=== PATIENT | female | born 1990 | race Caucasian/White ===

== ENCOUNTER 2017-06-06 04:07 | Emergency (ER) | payer MEDICAID ==
[~2017-06-06] VITALS: Ht 157.5 cm; Wt 57.2 kg
[~2017-06-06 04:07] MED LIST: COM10T PO; ESOM20CA PO; FAMO-128 PO; ONDA4TAB12 PO; ONDA4TAB6 PO; PER5325T PO; SUCR1ORA2 PO; ZOF4T PO
[2017-06-06] MEDS ORDERED: ondansetron/PF 4mg/2ml inj IV ONE (04:20)
[2017-06-06] MEDS ORDERED: HYDROmorphone inj. 0.5 MG/0.5 ML DISP.SYRIN IV ONE (04:20)
[2017-06-06] MEDS ORDERED: normal saline 1000ML IV soln IVB ONE (04:20)
[2017-06-06] MEDS ORDERED: acetaminophen 325mg tablet PO ONE (04:25)
[2017-06-06 04:48] LABS: BASOPHILS % (AUTO) 0.4 % (0-1); EOSINOPHILS # (AUTO) 0.1 X10'3 (0-0.9); EOSINOPHILS % (AUTO) 1.3 % (0-6); HEMATOCRIT 37.8 % (35.0-45.0); HEMOGLOBIN 12.6 g/dl (12.0-16.0); LYMPHOCYTES # (AUTO) 1.5 X10'3 (1.1-4.8); LYMPHOCYTES % (AUTO) 17.7 % (21-51); MEAN CORPUSCULAR HEMOGLOBIN 27.1 PG (27.0-31.0); MEAN CORPUSCULAR HGB CONC 33.4 % (33.0-36.5); MEAN PLATELET VOLUME 8.6 FL (7.4-10.4); MONOCYTES # (AUTO) 0.5 X10'3 (0-0.9); MONOCYTES % (AUTO) 6.5 % (2-12); NEUTROPHILS # (AUTO) 6.3 X10'3 (1.8-7.7); NEUTROPHILS % (AUTO) 74.1 % (42-75); PLATELET COUNT 251 X10'3 (140-440); RED BLOOD COUNT 4.67 X10'6 (4.20-5.60); WHITE BLOOD COUNT 8.4 X10'3 (4.5-11.0)
[2017-06-06 04:50] LABS: CLARITY,URINE CLOUDY (Clear); COLOR,URINE YELLOW (Yellow); GLUCOSE, URINE NEGATIVE (Neg); KETONES,URINE NEGATIVE (Neg); LEUKOCYTE ESTERASE ,URINE NEGATIVE (Neg); NITRITES, URINE NEGATIVE (Neg); OCCULT BLOOD,URINE LARGE (Neg); PROTEIN,URINE 100 mg/dl (Neg); URINE HCG NEGATIVE (NEG); UROBILINOGEN,URINE 0.2 E.U/dL (0.2-1.0)
[2017-06-06 05:03] LABS: ALANINE AMINOTRANSFERASE 23 U/L (12-78); ALBUMIN 4.4 G/DL (3.4-5.0); ALBUMIN/GLOBULIN RATIO 1.3 (1.1-1.5); ALKALINE PHOSPHATASE 70 IU/L (46-116); ANION GAP 9 (8-16); ASPARTATE AMINO TRANSFERASE 15 U/L (10-37); BILIRUBIN,TOTAL 0.4 MG/DL (0.1-1.0); BLOOD UREA NITROGEN 12 MG/DL (7-18); BUN/CREATININE RATIO 17.1 (6.6-38.0); CALCIUM 8.8 MG/DL (8.5-10.1); CHLORIDE 107 MMOL/L (99-107); GLUCOSE 99 MG/DL (70-104); POTASSIUM 3.8 MMOL/L (3.5-5.1); SODIUM 143 MMOL/L (135-145); TOTAL CARBON DIOXIDE 27.2 MMOL/L (24-32); TOTAL PROTEIN 7.7 G/DL (6.4-8.2); eGFR > 90 ML/MIN
[2017-06-06 05:15] LABS: UA COLLECTION TYPE CLN CATCH MIDSTREAM
[2017-06-06 05:17] LABS: BACTERIA,URINE 1+ /HPF (Neg); MUCUS STRANDS MODERATE /LPF (Neg); SQUAMOUS EPITHELIAL CELL,UR FEW /LPF (FEW)
[2017-06-06 05:18] LABS: AMORPHOUS PHOSPHATES 1+; TRANSITIONAL EPI CELLS,URINE FEW /HPF
[2017-06-06] MEDS ORDERED: ONDA8TAB9 PO (05:24)
[2017-06-06] MEDS ORDERED: HYDR-3965 PO (05:24)
[2017-06-06] MEDS ORDERED: HYDROcodone/acetaminophen 5mg/325mg tablet PO ONE (05:25)
[2017-06-06 05:41] VITALS: BP 95/62
[2017-06-07] MEDS ORDERED: NITR100C6 PO (11:42)
== END 2017-06-06 05:43 | disposition home or self-care (01) ==
LOC: ER 04:08
DX: R10.31 Right lower quadrant pain (principal); F12.10 Cannabis abuse, uncomplicated; E05.90 Thyrotoxicosis, unspecified without thyrotoxic crisis or storm; G89.29 Other chronic pain; Z90.49 Acquired absence of other specified parts of digestive tract; Z87.442 Personal history of urinary calculi
CPT/HCPCS: 36415; 80053; 81001; 81025; 85025; 87077; 87088; 87186; 96361; 96374; 96375; 99284; J1170; J2405; J7030

== ENCOUNTER 2017-06-08 21:21 | Emergency (ER) | payer MEDICAID ==
[~2017-06-08] VITALS: Ht 5200 cm; Wt 57.0 kg
[~2017-06-08 21:21] MED LIST changes: +HYDR-3965 PO; +NITR100C6 PO; +ONDA8TAB9 PO
[2017-06-08 21:40] LABS: COLOR,URINE YELLOW (Yellow); GLUCOSE, URINE NEGATIVE (Neg); KETONES,URINE NEGATIVE (Neg); LEUKOCYTE ESTERASE ,URINE TRACE (Neg); NITRITES, URINE NEGATIVE (Neg); OCCULT BLOOD,URINE SMALL (Neg); PROTEIN,URINE 30 mg/dl (Neg); UROBILINOGEN,URINE 0.2 E.U/dL (0.2-1.0)
[2017-06-08 21:47] LABS: CLARITY,URINE SLIGHTLY CLOUDY (Clear); UA COLLECTION TYPE CLN CATCH MIDSTREAM
[2017-06-08 21:48] LABS: BACTERIA,URINE FEW /HPF (Neg); MUCUS STRANDS MANY /LPF (Neg); RBC,URINE 0-2 /HPF (0-2); SQUAMOUS EPITHELIAL CELL,UR MODERATE /LPF (FEW); WBC,URINE 20-30 /HPF (0-4)
[2017-06-08] MEDS ORDERED: HYDROcodone/acetaminophen 5mg/325mg tablet PO ONE (22:45)
[2017-06-08] MEDS ORDERED: ondansetron 4mg rapidly disintigrating tab PO ONE (23:00)
[2017-06-08] MEDS ORDERED: normal saline 1000ml 1,000 ML IV ONE (23:05)
[2017-06-08] MEDS ORDERED: ondansetron/PF 4mg/2ml inj IV ONE (23:05)
[2017-06-08 23:07] LABS: BASOPHILS % (AUTO) 0.3 % (0-1); EOSINOPHILS # (AUTO) 0.2 X10'3 (0-0.9); EOSINOPHILS % (AUTO) 2.3 % (0-6); HEMATOCRIT 35.5 % (35.0-45.0); HEMOGLOBIN 11.6 g/dl (12.0-16.0); LYMPHOCYTES # (AUTO) 1.7 X10'3 (1.1-4.8); LYMPHOCYTES % (AUTO) 23.8 % (21-51); MEAN CORPUSCULAR HEMOGLOBIN 26.5 PG (27.0-31.0); MEAN CORPUSCULAR HGB CONC 32.7 % (33.0-36.5); MEAN CORPUSCULAR VOLUME 81.1 FL (78-98); MEAN PLATELET VOLUME 8.9 FL (7.4-10.4); MONOCYTES # (AUTO) 0.5 X10'3 (0-0.9); MONOCYTES % (AUTO) 6.7 % (2-12); NEUTROPHILS # (AUTO) 4.9 X10'3 (1.8-7.7); NEUTROPHILS % (AUTO) 66.9 % (42-75); PLATELET COUNT 237 X10'3 (140-440); RED BLOOD COUNT 4.37 X10'6 (4.20-5.60); RED CELL DISTRIBUTION WIDTH 14.3 % (11.5-14.5); WHITE BLOOD COUNT 7.3 X10'3 (4.5-11.0)
[2017-06-08 23:22] LABS: ALANINE AMINOTRANSFERASE 238 U/L (12-78); ALBUMIN 4.1 G/DL (3.4-5.0); ALBUMIN/GLOBULIN RATIO 1.2 (1.1-1.5); ALKALINE PHOSPHATASE 157 IU/L (46-116); ANION GAP 9 (8-16); ASPARTATE AMINO TRANSFERASE 77 U/L (10-37); BILIRUBIN,TOTAL 0.2 MG/DL (0.1-1.0); BLOOD UREA NITROGEN 11 MG/DL (7-18); BUN/CREATININE RATIO 15.7 (6.6-38.0); CALCIUM 8.9 MG/DL (8.5-10.1); CHLORIDE 107 MMOL/L (99-107); GLUCOSE 107 MG/DL (70-104); LIPASE 85 U/L (73-393); POTASSIUM 3.8 MMOL/L (3.5-5.1); SODIUM 143 MMOL/L (135-145); TOTAL PROTEIN 7.4 G/DL (6.4-8.2); eGFR > 90 ML/MIN
[2017-06-08] MEDS ORDERED: HYDROmorphone 1 mg/ml syringe IV ONE (23:45)
[2017-06-08] MEDS ORDERED: SULF1TAB49 PO (23:49)
[2017-06-08] MEDS ORDERED: PANT-47 PO (23:56)
[2017-06-08] MEDS ORDERED: IBUP-1985 PO (23:56)
[2017-06-08] MEDS ORDERED: HYDROmorphone inj. 0.5 MG/0.5 ML DISP.SYRIN ONE (23:57)
[2017-06-09] MEDS ORDERED: ACET-2144 PO
[2017-06-09] MEDS ORDERED: PANT-47 PO
[2017-06-09 00:42] VITALS: BP 107/57
[2017-06-09] MEDS ORDERED: ONDA8TAB9 PO (21:40)
[2017-06-10] MEDS ORDERED: HYDR-3965 PO (22:41)
== END 2017-06-09 00:44 | disposition home or self-care (01) ==
LOC: ER 21:22
DX: N12 Tubulo-interstitial nephritis, not specified as acute or chronic (principal); N39.0 Urinary tract infection, site not specified; G89.29 Other chronic pain; E05.90 Thyrotoxicosis, unspecified without thyrotoxic crisis or storm; F12.10 Cannabis abuse, uncomplicated; Z90.49 Acquired absence of other specified parts of digestive tract; Z87.442 Personal history of urinary calculi; Z88.1 Allergy status to other antibiotic agents; Z88.5 Allergy status to narcotic agent
CPT/HCPCS: 36415; 80053; 81001; 83605; 83690; 85025; 87040; 87088; 96361; 96372; 96374; 96375; 99284; J1170; J2270; J2405; J7030

== ENCOUNTER 2017-06-09 15:36 | Emergency (ER) | payer MEDICAID ==
[~2017-06-09] VITALS: Ht 157.5 cm; Wt 56.0 kg
[~2017-06-09 15:36] MED LIST changes: +ACET-2144 PO; +IBUP-1985 PO; +PANT-47 PO; +SULF1TAB49 PO
[2017-06-09] MEDS ORDERED: ketorolac trometh inj. 60 MG/2 ML VIAL IM ONE (16:05)
[2017-06-09 16:27] LABS: BASOPHILS % (AUTO) 0.4 % (0-1); EOSINOPHILS # (AUTO) 0.1 X10'3 (0-0.9); EOSINOPHILS % (AUTO) 2.1 % (0-6); HEMATOCRIT 33.7 % (35.0-45.0); HEMOGLOBIN 11.1 g/dl (12.0-16.0); LYMPHOCYTES # (AUTO) 1.2 X10'3 (1.1-4.8); LYMPHOCYTES % (AUTO) 19.6 % (21-51); MEAN CORPUSCULAR HEMOGLOBIN 26.7 PG (27.0-31.0); MEAN CORPUSCULAR HGB CONC 32.9 % (33.0-36.5); MEAN CORPUSCULAR VOLUME 81.1 FL (78-98); MEAN PLATELET VOLUME 8.2 FL (7.4-10.4); MONOCYTES # (AUTO) 0.4 X10'3 (0-0.9); MONOCYTES % (AUTO) 7.2 % (2-12); NEUTROPHILS # (AUTO) 4.2 X10'3 (1.8-7.7); NEUTROPHILS % (AUTO) 70.7 % (42-75); PLATELET COUNT 242 X10'3 (140-440); RED BLOOD COUNT 4.16 X10'6 (4.20-5.60); RED CELL DISTRIBUTION WIDTH 14.2 % (11.5-14.5)
[2017-06-09 16:39] LABS: ALANINE AMINOTRANSFERASE 182 U/L (12-78); ALBUMIN 4.1 G/DL (3.4-5.0); ALBUMIN/GLOBULIN RATIO 1.3 (1.1-1.5); ALKALINE PHOSPHATASE 139 IU/L (46-116); ANION GAP 9 (8-16); ASPARTATE AMINO TRANSFERASE 49 U/L (10-37); BILIRUBIN,TOTAL 0.4 MG/DL (0.1-1.0); BLOOD UREA NITROGEN 7 MG/DL (7-18); CALCIUM 8.6 MG/DL (8.5-10.1); CHLORIDE 106 MMOL/L (99-107); GLUCOSE 102 MG/DL (70-104); POTASSIUM 3.8 MMOL/L (3.5-5.1); SODIUM 142 MMOL/L (135-145); TOTAL CARBON DIOXIDE 27.2 MMOL/L (24-32); TOTAL PROTEIN 7.2 G/DL (6.4-8.2); eGFR > 90 ML/MIN
[2017-06-09] MEDS ORDERED: normal saline 1000ML IV soln IVB ONE (16:45)
[2017-06-09] MEDS ORDERED: ondansetron/PF 4mg/2ml inj IV ONE (16:55)
[2017-06-09 17:04] LABS: URINE HCG NEGATIVE (NEG)
[2017-06-09 17:07] LABS: INR 0.9 INR; PARTIAL THROMBOPLASTIN TIME 27 SECONDS (22-32); PROTHROMBIN TIME 9.6 SECONDS (9.0-12.0)
[2017-06-09] MEDS ORDERED: LORazepam 2 mg/ml vial IV ONE (17:25)
[2017-06-09] MEDS ORDERED: proCHLORperazine 10 MG/2 ml inj IV ONE (17:25)
[2017-06-09 18:15] LABS: URINE AMPHETAMINE SCREEN NEGATIVE (Neg); URINE BARBITUATE SCREEN NEGATIVE (Neg); URINE BENZODIAZEPINES SCREEN POSITIVE (Neg); URINE CANNABINOID SCREEN POSITIVE (Neg); URINE COCAINE SCREEN NEGATIVE (Neg); URINE METHADONE SCREEN NEGATIVE (Neg); URINE OPIATE SCREEN POSITIVE (Neg); URINE PHENCYCLIDINE SCREEN NEGATIVE (Neg)
[2017-06-09 18:17] LABS: CLARITY,URINE CLEAR (Clear); COLOR,URINE YELLOW (Yellow); GLUCOSE, URINE NEGATIVE (Neg); KETONES,URINE 15 mg/dl (Neg); LEUKOCYTE ESTERASE ,URINE NEGATIVE (Neg); NITRITES, URINE NEGATIVE (Neg); OCCULT BLOOD,URINE TRACE-LYSED (Neg); PH,URINE 6.5 (4.8-8.0); PROTEIN,URINE NEGATIVE (Neg); UROBILINOGEN,URINE 0.2 E.U/dL (0.2-1.0)
[2017-06-09 18:21] LABS: UA COLLECTION TYPE CLN CATCH MIDSTREAM
[2017-06-09 18:25] LABS: WBC,URINE 0-4 /HPF (0-4)
[2017-06-09 18:26] LABS: BACTERIA,URINE NONE SEEN /HPF (Neg); MUCUS STRANDS FEW /LPF (Neg); RBC,URINE 0-2 /HPF (0-2); SQUAMOUS EPITHELIAL CELL,UR FEW /LPF (FEW)
[2017-06-09] MEDS: diatr meglu/diatrizoate 30ml oral sol.-(3 dose) bottle PO SCH ×3 (18:40→20:05)
[2017-06-09] MEDS ORDERED: ONDA8TAB9 PO (21:40)
[2017-06-09] MEDS ORDERED: metoclopramide 5 mg/ml inj IV ONE (21:40)
[2017-06-09 22:05] VITALS: BP 121/58
[2017-06-10] MEDS ORDERED: HYDR-3965 PO (22:41)
== END 2017-06-09 22:06 | disposition home or self-care (01) ==
LOC: ER 15:36
DX: N39.0 Urinary tract infection, site not specified (principal); G89.29 Other chronic pain; F12.10 Cannabis abuse, uncomplicated; E05.90 Thyrotoxicosis, unspecified without thyrotoxic crisis or storm; Z87.442 Personal history of urinary calculi; Z90.49 Acquired absence of other specified parts of digestive tract; Z88.1 Allergy status to other antibiotic agents; Z88.8 Allergy status to other drugs, medicaments and biological substances; Z79.899 Other long term (current) drug therapy
CPT/HCPCS: 36415; 72100; 74018; 76700; 76830; 76856; 80053; 80305; 81001; 81025; 82977; 83605; 84145; 85025; 85610; 85730; 87040; 93005; 96361; 96374; 96375; 99285; J0780; J2060; J2270; J2405; J7030; Q9963; J1885

== ENCOUNTER 2017-06-10 21:22 | Emergency (ER) | payer MEDICAID ==
[~2017-06-10] VITALS: Ht 157.5 cm; Wt 2.2 kg
[2017-06-10] MEDS ORDERED: ondansetron/PF 4mg/2ml inj IV ONE (21:35)
[2017-06-10] MEDS: fentaNYL/PF 50MCG/1 ML 2ML syringe IV PRN ×2 (21:51→22:57)
[2017-06-10 22:03] LABS: BASOPHILS % (AUTO) 0.2 % (0-1); EOSINOPHILS # (AUTO) 0.1 X10'3 (0-0.9); EOSINOPHILS % (AUTO) 1.3 % (0-6); HEMATOCRIT 31.2 % (35.0-45.0); HEMOGLOBIN 10.5 g/dl (12.0-16.0); LYMPHOCYTES % (AUTO) 19.6 % (21-51); MEAN CORPUSCULAR HEMOGLOBIN 26.8 PG (27.0-31.0); MEAN CORPUSCULAR HGB CONC 33.8 % (33.0-36.5); MEAN CORPUSCULAR VOLUME 79.3 FL (78-98); MEAN PLATELET VOLUME 7.7 FL (7.4-10.4); MONOCYTES # (AUTO) 0.5 X10'3 (0-0.9); MONOCYTES % (AUTO) 8.7 % (2-12); NEUTROPHILS # (AUTO) 3.7 X10'3 (1.8-7.7); NEUTROPHILS % (AUTO) 70.2 % (42-75); PLATELET COUNT 215 X10'3 (140-440); RED BLOOD COUNT 3.93 X10'6 (4.20-5.60); WHITE BLOOD COUNT 5.3 X10'3 (4.5-11.0)
[2017-06-10 22:14] LABS: ALANINE AMINOTRANSFERASE 119 U/L (12-78); ALBUMIN 3.7 G/DL (3.4-5.0); ALBUMIN/GLOBULIN RATIO 1.3 (1.1-1.5); ALKALINE PHOSPHATASE 116 IU/L (46-116); ANION GAP 10 (8-16); ASPARTATE AMINO TRANSFERASE 24 U/L (10-37); BILIRUBIN,TOTAL 0.4 MG/DL (0.1-1.0); BLOOD UREA NITROGEN 6 MG/DL (7-18); CALCIUM 8.2 MG/DL (8.5-10.1); CHLORIDE 107 MMOL/L (99-107); GLUCOSE 106 MG/DL (70-104); LIPASE 81 U/L (73-393); POTASSIUM 3.7 MMOL/L (3.5-5.1); SODIUM 142 MMOL/L (135-145); TOTAL CARBON DIOXIDE 25.3 MMOL/L (24-32); TOTAL PROTEIN 6.6 G/DL (6.4-8.2); eGFR > 90 ML/MIN
[2017-06-10] MEDS ORDERED: HYDR-3965 PO (22:41)
[2017-06-10 23:19] VITALS: BP 103/65
[2017-06-11] MEDS ORDERED: PROC25SU31 RC (21:51)
== END 2017-06-10 23:21 | disposition home or self-care (01) ==
LOC: ER 21:23
DX: R10.32 Left lower quadrant pain (principal); E05.90 Thyrotoxicosis, unspecified without thyrotoxic crisis or storm; G89.29 Other chronic pain; M54.9 Dorsalgia, unspecified; F41.9 Anxiety disorder, unspecified; F31.9 Bipolar disorder, unspecified; F12.10 Cannabis abuse, uncomplicated; Z87.442 Personal history of urinary calculi; Z88.6 Allergy status to analgesic agent; Z88.1 Allergy status to other antibiotic agents
CPT/HCPCS: 36415; 80053; 83690; 85025; 96374; 96375; 96376; 99284; J2405; J3010

== ENCOUNTER 2017-06-11 21:06 | Emergency (ER) | payer MEDICAID ==
[~2017-06-11] VITALS: Ht 157.5 cm; Wt 55.4 kg
[2017-06-11] MEDS ORDERED: proCHLORperazine 10 MG/2 ml inj IM ONE (21:50)
[2017-06-11] MEDS ORDERED: PROC25SU31 RC (21:51)
[2017-06-11 22:04] VITALS: BP 139/89
== END 2017-06-11 22:05 | disposition home or self-care (01) ==
LOC: ER 21:07
DX: G89.29 Other chronic pain (principal); M54.5 Low back pain; F12.10 Cannabis abuse, uncomplicated; E05.90 Thyrotoxicosis, unspecified without thyrotoxic crisis or storm; Z76.5 Malingerer [conscious simulation]; Z87.442 Personal history of urinary calculi; Z90.49 Acquired absence of other specified parts of digestive tract; Z88.1 Allergy status to other antibiotic agents; Z88.8 Allergy status to other drugs, medicaments and biological substances; Z79.899 Other long term (current) drug therapy
CPT/HCPCS: 96372; 99283; J0780

== ENCOUNTER 2022-01-11 05:42 | Emergency (ER) | payer MEDICAID ==
[~2022-01-11] VITALS: Ht 154.9 cm; Wt 59.0 kg
[~2022-01-11 05:42] MED LIST changes: -ACET-2144 PO; -HYDR-3965 PO; -SULF1TAB49 PO
[2022-01-11] MEDS ORDERED: ketorolac trometh inj. 60 MG/2 ML VIAL IM ONE (09:15)
[2022-01-11] MEDS ORDERED: HYDROcodone/acetaminophen 10/325mg tab PO ONE (09:15)
[2022-01-11] MEDS ORDERED: LORazepam 2 mg/ml vial IM ONE (09:15)
[2022-01-11] MEDS ORDERED: ondansetron 4mg rapidly disintigrating tab PO ONE (09:15)
[2022-01-11] MEDS ORDERED: LIDOcaine 5% patch TP STA (09:15)
[2022-01-11] MEDS ORDERED: LORazepam 1 MG tablet PO ONE (09:40)
[2022-01-11 10:08] VITALS: BP 143/91
[2022-01-11] MEDS ORDERED: IBUP-1986 PO (10:10)
[2022-01-11] MEDS ORDERED: HYDR-3972 PO (10:10)
== END 2022-01-11 10:36 | disposition home or self-care (01) ==
LOC: ER 05:43
DX: M53.3 Sacrococcygeal disorders, not elsewhere classified (principal); E03.9 Hypothyroidism, unspecified; F31.9 Bipolar disorder, unspecified; G89.29 Other chronic pain; M54.9 Dorsalgia, unspecified; Z87.19 Personal history of other diseases of the digestive system; Z90.49 Acquired absence of other specified parts of digestive tract; F12.10 Cannabis abuse, uncomplicated; Z79.899 Other long term (current) drug therapy; Z88.1 Allergy status to other antibiotic agents; Z88.6 Allergy status to analgesic agent; Z79.1 Long term (current) use of non-steroidal anti-inflammatories (NSAID)
CPT/HCPCS: 96372; 99284; J1885

== ENCOUNTER 2022-02-05 09:48 | Emergency (ER) | payer MEDICAID ==
[~2022-02-05] VITALS: Ht 154.9 cm; Wt 60.0 kg
[~2022-02-05 09:48] MED LIST changes: +IBUP-1986 PO
[2022-02-05] MEDS ORDERED: potassium Cl 10 mEq/100mL bag IV ONE (09:55)
[2022-02-05] MEDS ORDERED: haloperidol lactate 5mg/ml inj IM ONE (09:55)
[2022-02-05] MEDS ORDERED: LORazepam 2 mg/ml vial IV ONE (09:55)
[2022-02-05] MEDS ORDERED: magnesium 2GM in 50ml NS 50 ML IV ONE (09:55)
[2022-02-05] MEDS ORDERED: normal saline 1000ML IV soln IVB ONE (09:55)
[2022-02-05 10:35] LABS: BASOPHILS % (AUTO) 0.4 % (0-1); EOSINOPHILS % (AUTO) 0 % (0-6); HEMATOCRIT 32.8 % (35.0-45.0); HEMOGLOBIN 11.1 g/dl (12.0-16.0); LYMPHOCYTES # (AUTO) 0.5 X10'3 (1.1-4.8); LYMPHOCYTES % (AUTO) 9.7 % (21-51); MEAN CORPUSCULAR HEMOGLOBIN 27.7 PG (27.0-31.0); MEAN CORPUSCULAR HGB CONC 33.7 g/dL (33.0-36.5); MEAN PLATELET VOLUME 8.6 FL (7.4-10.4); MONOCYTES # (AUTO) 0.2 X10'3 (0-0.9); MONOCYTES % (AUTO) 3.7 % (2-12); NEUTROPHILS % (AUTO) 86.2 % (42-75); PLATELET COUNT 183 X10'3 (140-440); RED CELL DISTRIBUTION WIDTH 14.4 % (11.5-14.5); WHITE BLOOD COUNT 4.7 X10'3 (4.5-11.0)
[2022-02-05 10:51] LABS: ALANINE AMINOTRANSFERASE 14 U/L (12-78); ALBUMIN 3.6 G/DL (3.4-5.0); ALBUMIN/GLOBULIN RATIO 1.4 (1.1-1.5); ALKALINE PHOSPHATASE 43 IU/L (46-116); ANION GAP 13 (8-16); ASPARTATE AMINO TRANSFERASE 12 U/L (10-37); BILIRUBIN,TOTAL 0.4 MG/DL (0.1-1.0); BLOOD UREA NITROGEN 8 MG/DL (7-18); BUN/CREATININE RATIO 12.5 (6.6-38.0); CHLORIDE 107 MMOL/L (99-107); CREATININE 0.64 MG/DL (0.40-0.90); GLUCOSE 143 MG/DL (70-104); LIPASE 61 U/L (73-393); POTASSIUM 3.6 MMOL/L (3.5-5.1); SODIUM 140 MMOL/L (135-145); TOTAL CARBON DIOXIDE 19.8 MMOL/L (24-32); TOTAL PROTEIN 6.2 G/DL (6.4-8.2); eGFR > 90 ML/MIN
[2022-02-05 10:56] LABS: CALCIUM 7.7 MG/DL (8.5-10.1)
[2022-02-05 11:41] LABS: HCG SERUM QL NEGATIVE
[2022-02-05 12:14] VITALS: BP 121/74
[2022-02-05 12:17] LABS: CLARITY,URINE CLEAR (Clear); GLUCOSE, URINE 100 mg/dl (Neg); KETONES,URINE 15 mg/dl (Neg); LEUKOCYTE ESTERASE ,URINE NEGATIVE (Neg); NITRITES, URINE NEGATIVE (Neg); OCCULT BLOOD,URINE NEGATIVE (Neg); PH,URINE 6.5 (4.8-8.0); PROTEIN,URINE NEGATIVE (Neg); UROBILINOGEN,URINE 0.2 E.U/dL (0.2-1.0)
[2022-02-05 12:18] LABS: COLOR,URINE STRAW (Yellow); UA COLLECTION TYPE VOIDED
[2022-02-05 12:21] LABS: URINE AMPHETAMINE SCREEN NEGATIVE (Neg); URINE BARBITUATE SCREEN NEGATIVE (Neg); URINE BENZODIAZEPINES SCREEN NEGATIVE (Neg); URINE CANNABINOID SCREEN POSITIVE (Neg); URINE COCAINE SCREEN NEGATIVE (Neg); URINE METHADONE SCREEN NEGATIVE (Neg); URINE OPIATE SCREEN NEGATIVE (Neg); URINE PHENCYCLIDINE SCREEN NEGATIVE (Neg)
== END 2022-02-05 12:15 | disposition home or self-care (01) ==
LOC: ER 09:48
DX: R11.15 Cyclical vomiting syndrome unrelated to migraine (principal); F12.188 Cannabis abuse with other cannabis-induced disorder; R10.84 Generalized abdominal pain; E05.90 Thyrotoxicosis, unspecified without thyrotoxic crisis or storm; G89.29 Other chronic pain; F41.9 Anxiety disorder, unspecified; F31.9 Bipolar disorder, unspecified; Z87.442 Personal history of urinary calculi; Z87.440 Personal history of urinary (tract) infections; Z90.89 Acquired absence of other organs; Z90.49 Acquired absence of other specified parts of digestive tract; Z72.89 Other problems related to lifestyle; Z98.890 Other specified postprocedural states; Z88.1 Allergy status to other antibiotic agents; Z88.8 Allergy status to other drugs, medicaments and biological substances; Z79.899 Other long term (current) drug therapy
CPT/HCPCS: 36415; 80053; 80305; 81003; 83690; 84703; 85025; 96365; 96366; 96372; 96375; 99284; J1630; J2060; J3475; J3480; J7030

== ENCOUNTER → 2022-02-07 | Emergency (ER) | payer MEDICAID ==
[~2022-02-07] VITALS: Ht 154.9 cm; Wt 60.0 kg
[2022-02-07 19:54] VITALS: BP 128/90
[2022-02-07 20:23] LABS: BASOPHILS % (AUTO) 0.3 % (0-1); EOSINOPHILS % (AUTO) 0.1 % (0-6); HEMATOCRIT 36.4 % (35.0-45.0); HEMOGLOBIN 12.5 g/dl (12.0-16.0); LYMPHOCYTES # (AUTO) 0.9 X10'3 (1.1-4.8); LYMPHOCYTES % (AUTO) 20.5 % (21-51); MEAN CORPUSCULAR HGB CONC 34.3 g/dL (33.0-36.5); MEAN CORPUSCULAR VOLUME 81.6 FL (78-98); MEAN PLATELET VOLUME 8.3 FL (7.4-10.4); MONOCYTES # (AUTO) 0.5 X10'3 (0-0.9); MONOCYTES % (AUTO) 11.8 % (2-12); NEUTROPHILS # (AUTO) 3.1 X10'3 (1.8-7.7); NEUTROPHILS % (AUTO) 67.3 % (42-75); PLATELET COUNT 269 X10'3 (140-440); RED BLOOD COUNT 4.46 X10'6 (4.20-5.60); RED CELL DISTRIBUTION WIDTH 14.1 % (11.5-14.5); WHITE BLOOD COUNT 4.5 X10'3 (4.5-11.0)
[2022-02-07 20:38] LABS: ALANINE AMINOTRANSFERASE 32 U/L (12-78); ALBUMIN 4.2 G/DL (3.4-5.0); ALBUMIN/GLOBULIN RATIO 1.4 (1.1-1.5); ALKALINE PHOSPHATASE 56 IU/L (46-116); ANION GAP 10 (8-16); ASPARTATE AMINO TRANSFERASE 19 U/L (10-37); BILIRUBIN,TOTAL 0.7 MG/DL (0.1-1.0); BLOOD UREA NITROGEN 10 MG/DL (7-18); BUN/CREATININE RATIO 19.2 (6.6-38.0); CALCIUM 8.9 MG/DL (8.5-10.1); CHLORIDE 98 MMOL/L (99-107); CREATININE 0.52 MG/DL (0.40-0.90); GLUCOSE 109 MG/DL (70-104); LIPASE 86 U/L (73-393); POTASSIUM 3.1 MMOL/L (3.5-5.1); SODIUM 136 MMOL/L (135-145); TOTAL CARBON DIOXIDE 28.5 MMOL/L (24-32); TOTAL PROTEIN 7.2 G/DL (6.4-8.2); eGFR > 90 ML/MIN
== END | disposition left against medical advice (07) ==
LOC: ER 19:28
DX: R10.84 Generalized abdominal pain (principal); Z53.21 Procedure and treatment not carried out due to patient leaving prior to being seen by health care provider; R11.2 Nausea with vomiting, unspecified
CPT/HCPCS: 36415; 80053; 83690; 85025

== ENCOUNTER 2022-03-20 17:07 | Emergency (ER) | payer MEDICAID ==
[~2022-03-20] VITALS: Ht 154.9 cm; Wt 61.0 kg
[2022-03-20 17:45] VITALS: BP 130/83
[2022-03-20 18:24] LABS: BASOPHILS % (AUTO) 0.4 % (0-1); EOSINOPHILS % (AUTO) 0.1 % (0-6); HEMATOCRIT 37.8 % (35.0-45.0); HEMOGLOBIN 12.8 g/dl (12.0-16.0); LYMPHOCYTES # (AUTO) 0.8 X10'3 (1.1-4.8); LYMPHOCYTES % (AUTO) 15.3 % (21-51); MEAN CORPUSCULAR HEMOGLOBIN 27.4 PG (27.0-31.0); MEAN CORPUSCULAR HGB CONC 33.8 g/dL (33.0-36.5); MEAN PLATELET VOLUME 8.1 FL (7.4-10.4); MONOCYTES # (AUTO) 0.4 X10'3 (0-0.9); MONOCYTES % (AUTO) 7.9 % (2-12); NEUTROPHILS # (AUTO) 3.9 X10'3 (1.8-7.7); NEUTROPHILS % (AUTO) 76.3 % (42-75); PLATELET COUNT 309 X10'3 (140-440); RED BLOOD COUNT 4.67 X10'6 (4.20-5.60); RED CELL DISTRIBUTION WIDTH 14.2 % (11.5-14.5); WHITE BLOOD COUNT 5.1 X10'3 (4.5-11.0)
[2022-03-20 18:38] LABS: ALANINE AMINOTRANSFERASE 46 U/L (12-78); ALBUMIN 4.5 G/DL (3.4-5.0); ALBUMIN/GLOBULIN RATIO 1.4 (1.1-1.5); ALKALINE PHOSPHATASE 60 IU/L (46-116); ANION GAP 10 (8-16); ASPARTATE AMINO TRANSFERASE 32 U/L (10-37); BILIRUBIN,TOTAL 0.9 MG/DL (0.1-1.0); BLOOD UREA NITROGEN 16 MG/DL (7-18); BUN/CREATININE RATIO 27.1 (6.6-38.0); CALCIUM 9.5 MG/DL (8.5-10.1); CHLORIDE 101 MMOL/L (99-107); CREATININE 0.59 MG/DL (0.40-0.90); GLUCOSE 112 MG/DL (70-104); LIPASE 71 U/L (73-393); POTASSIUM 3.5 MMOL/L (3.5-5.1); SODIUM 138 MMOL/L (135-145); TOTAL CARBON DIOXIDE 27.1 MMOL/L (24-32); TOTAL PROTEIN 7.7 G/DL (6.4-8.2); eGFR > 90 ML/MIN
== END 2022-03-20 22:54 | disposition left against medical advice (07) ==
LOC: ER 17:08
DX: R10.9 Unspecified abdominal pain (principal); Z53.21 Procedure and treatment not carried out due to patient leaving prior to being seen by health care provider
CPT/HCPCS: 36415; 80053; 83690; 85025

== ENCOUNTER 2022-03-22 05:07 | Emergency (ER) | payer MEDICAID ==
[~2022-03-22] VITALS: Ht 162.6 cm; Wt 63.6 kg
[2022-03-22] MEDS ORDERED: diphenhydrAMINE 50 mg/ml inj IV ONE (05:10)
[2022-03-22] MEDS ORDERED: normal saline 1000ML IV soln IVB ONE ×2 (05:10)
[2022-03-22] MEDS ORDERED: metoclopramide 5 mg/ml inj IV ONE (05:10)
[2022-03-22] MEDS ORDERED: LORazepam 2 mg/ml vial IV ONE (05:15)
[2022-03-22 05:48] LABS: EOSINOPHILS % (AUTO) 0.1 % (0-6); HEMOGLOBIN 12.6 g/dl (12.0-16.0); MEAN CORPUSCULAR HGB CONC 34.1 g/dL (33.0-36.5)
[2022-03-22 05:50] LABS: BASOPHILS % (AUTO) 0.1 % (0-1); HEMATOCRIT 37.1 % (35.0-45.0); LYMPHOCYTES # (AUTO) 1.5 X10'3 (1.1-4.8); LYMPHOCYTES % (AUTO) 25.4 % (21-51); MEAN CORPUSCULAR HEMOGLOBIN 27.1 PG (27.0-31.0); MEAN CORPUSCULAR VOLUME 79.3 FL (78-98); MEAN PLATELET VOLUME 8.4 FL (7.4-10.4); MONOCYTES # (AUTO) 0.6 X10'3 (0-0.9); NEUTROPHILS # (AUTO) 3.8 X10'3 (1.8-7.7); NEUTROPHILS % (AUTO) 64.4 % (42-75); PLATELET COUNT 348 X10'3 (140-440); RED BLOOD COUNT 4.67 X10'6 (4.20-5.60); RED CELL DISTRIBUTION WIDTH 13.7 % (11.5-14.5); WHITE BLOOD COUNT 5.9 X10'3 (4.5-11.0)
[2022-03-22 05:55] LABS: ALANINE AMINOTRANSFERASE 53 U/L (12-78); ALBUMIN 4.1 G/DL (3.4-5.0); ALBUMIN/GLOBULIN RATIO 1.4 (1.1-1.5); ALKALINE PHOSPHATASE 55 IU/L (46-116); ANION GAP 14 (8-16); ASPARTATE AMINO TRANSFERASE 28 U/L (10-37); BLOOD UREA NITROGEN 13 MG/DL (7-18); BUN/CREATININE RATIO 20.3 (6.6-38.0); CALCIUM 8.6 MG/DL (8.5-10.1); CHLORIDE 97 MMOL/L (99-107); CREATININE 0.64 MG/DL (0.40-0.90); GLUCOSE 103 MG/DL (70-104); LIPASE 68 U/L (73-393); SODIUM 137 MMOL/L (135-145); TOTAL CARBON DIOXIDE 25.8 MMOL/L (24-32); eGFR > 90 ML/MIN
[2022-03-22] MEDS ORDERED: ONDA4TAB12 PO (06:04)
[2022-03-22] MEDS ORDERED: POTA-207 PO (06:05)
[2022-03-22] MEDS ORDERED: potassium Cl 10 mEq/100mL bag IV ONE (06:05)
--- NOTE | 2022-03-22 06:28 | NUR ---
patient sleeping. no distress noted.
[2022-03-22 07:29] VITALS: BP 103/70
== END 2022-03-22 07:31 | disposition home or self-care (01) ==
LOC: ER 05:07
DX: R11.15 Cyclical vomiting syndrome unrelated to migraine (principal); G89.29 Other chronic pain; M54.50 Low back pain, unspecified; F31.9 Bipolar disorder, unspecified; F12.90 Cannabis use, unspecified, uncomplicated; Z88.1 Allergy status to other antibiotic agents; Z88.6 Allergy status to analgesic agent; Z98.890 Other specified postprocedural states
CPT/HCPCS: 36415; 80053; 83690; 85025; 96361; 96374; 96375; 99284; J1200; J2060; J2765; J3480; J7030

== ENCOUNTER 2022-09-24 14:11 | Emergency (ER) | payer MEDICAID ==
[~2022-09-24] VITALS: Ht 154.9 cm; Wt 63.6 kg
[2022-09-24] MEDS ORDERED: normal saline 1000ML IV soln IVB ONE (16:00)
[2022-09-24] MEDS ORDERED: ondansetron/PF 4mg/2ml inj IV ONE (16:00)
[2022-09-24] MEDS ORDERED: loperamide 2mg capsule PO ONE (16:00)
[2022-09-24] MEDS ORDERED: pantoprazole 40 MG vial IV ONE (16:00)
[2022-09-24 16:34] LABS: BASOPHILS % (AUTO) 0.1 % (0-1); EOSINOPHILS % (AUTO) 0 % (0-6); HEMATOCRIT 32.4 % (35.0-45.0); HEMOGLOBIN 10.8 g/dl (12.0-16.0); LYMPHOCYTES # (AUTO) 0.3 X10'3 (1.1-4.8); LYMPHOCYTES % (AUTO) 3.3 % (21-51); MEAN CORPUSCULAR HGB CONC 33.2 g/dL (33.0-36.5); MEAN CORPUSCULAR VOLUME 81.3 FL (78-98); MEAN PLATELET VOLUME 8.7 FL (7.4-10.4); MONOCYTES # (AUTO) 0.2 X10'3 (0-0.9); MONOCYTES % (AUTO) 2.9 % (2-12); NEUTROPHILS # (AUTO) 7.7 X10'3 (1.8-7.7); NEUTROPHILS % (AUTO) 93.7 % (42-75); PLATELET COUNT 208 X10'3 (140-440); RED BLOOD COUNT 3.99 X10'6 (4.20-5.60); WHITE BLOOD COUNT 8.2 X10'3 (4.5-11.0)
[2022-09-24] MEDS ORDERED: pantoprazole 40MG/NS 100ML BAG 100 ML IV ONE (16:35)
[2022-09-24 16:45] LABS: ALANINE AMINOTRANSFERASE 39 U/L (12-78); ALBUMIN 3.9 G/DL (3.4-5.0); ALBUMIN/GLOBULIN RATIO 1.2 (1.1-1.5); ALKALINE PHOSPHATASE 45 IU/L (46-116); ANION GAP 13 (8-16); ASPARTATE AMINO TRANSFERASE 25 U/L (10-37); BILIRUBIN,TOTAL 0.5 MG/DL (0.1-1.0); BLOOD UREA NITROGEN 9 MG/DL (7-18); BUN/CREATININE RATIO 13.8 (10.0-20.0); CALCIUM 7.9 MG/DL (8.5-10.1); CHLORIDE 107 MMOL/L (99-107); CREATININE 0.65 MG/DL (0.40-0.90); GLUCOSE 133 MG/DL (70-104); LIPASE < 50 U/L (73-393); POTASSIUM 3.7 MMOL/L (3.5-5.1); SODIUM 143 MMOL/L (135-145); TOTAL CARBON DIOXIDE 22.7 MMOL/L (24-32); TOTAL PROTEIN 7.1 G/DL (6.4-8.2); eGFR > 90 ML/MIN
[2022-09-24 16:50] LABS: HCG SERUM QL NEGATIVE
[2022-09-24 17:00] VITALS: BP 125/81
[2022-09-24 17:21] LABS: CLARITY,URINE SLIGHTLY CLOUDY (Clear); COLOR,URINE YELLOW (Yellow); GLUCOSE, URINE NEGATIVE (Neg); KETONES,URINE 40 mg/dl (Neg); LEUKOCYTE ESTERASE ,URINE NEGATIVE (Neg); NITRITES, URINE NEGATIVE (Neg); OCCULT BLOOD,URINE NEGATIVE (Neg); PH,URINE 6.5 (4.8-8.0); PROTEIN,URINE TRACE mg/dl (Neg); UROBILINOGEN,URINE 0.2 E.U/dL (0.2-1.0)
[2022-09-24 17:41] LABS: UA COLLECTION TYPE CLN CATCH MIDSTREAM
[2022-09-24 17:49] LABS: BACTERIA,URINE 1+ /HPF (Neg); MUCUS STRANDS MANY /LPF (Neg); RBC,URINE NONE SEEN /HPF (0-2); SQUAMOUS EPITHELIAL CELL,UR MANY /LPF (FEW)
[2022-09-24] MEDS ORDERED: PANT-47 PO (19:19)
[2022-09-24] MEDS ORDERED: ONDA8TAB13 PO (19:19)
== END 2022-09-24 20:11 | disposition home or self-care (01) ==
LOC: ER 14:11
DX: R11.2 Nausea with vomiting, unspecified (principal); F31.9 Bipolar disorder, unspecified; F12.90 Cannabis use, unspecified, uncomplicated; Z88.1 Allergy status to other antibiotic agents; Z88.6 Allergy status to analgesic agent; Z98.890 Other specified postprocedural states; Z90.49 Acquired absence of other specified parts of digestive tract
CPT/HCPCS: 36415; 80053; 81001; 83690; 84703; 85025; 96361; 96365; 96375; 99284; C9113; J2405; J7030

== ENCOUNTER 2022-10-01 21:37 | Emergency (ER) | payer MEDICAID ==
[~2022-10-01] VITALS: Ht 154.9 cm; Wt 68.2 kg
[~2022-10-01 21:37] MED LIST changes: +ONDA8TAB13 PO
[2022-10-01 22:06] VITALS: BP 151/93
[2022-10-01 22:50] LABS: BASOPHILS % (AUTO) 0.3 % (0-1); EOSINOPHILS % (AUTO) 0 % (0-6); HEMATOCRIT 35.6 % (35.0-45.0); HEMOGLOBIN 11.9 g/dl (12.0-16.0); LYMPHOCYTES # (AUTO) 0.7 X10'3 (1.1-4.8); LYMPHOCYTES % (AUTO) 13.3 % (21-51); MEAN CORPUSCULAR HEMOGLOBIN 26.6 PG (27.0-31.0); MEAN CORPUSCULAR HGB CONC 33.4 g/dL (33.0-36.5); MEAN CORPUSCULAR VOLUME 79.5 FL (78-98); MEAN PLATELET VOLUME 7.6 FL (7.4-10.4); MONOCYTES # (AUTO) 0.4 X10'3 (0-0.9); MONOCYTES % (AUTO) 7.7 % (2-12); NEUTROPHILS # (AUTO) 4.3 X10'3 (1.8-7.7); NEUTROPHILS % (AUTO) 78.7 % (42-75); PLATELET COUNT 337 X10'3 (140-440); RED BLOOD COUNT 4.48 X10'6 (4.20-5.60); RED CELL DISTRIBUTION WIDTH 14.3 % (11.5-14.5); WHITE BLOOD COUNT 5.5 X10'3 (4.5-11.0)
[2022-10-01 23:14] LABS: ALANINE AMINOTRANSFERASE 34 U/L (12-78); ALBUMIN 4.3 G/DL (3.4-5.0); ALBUMIN/GLOBULIN RATIO 1.5 (1.1-1.5); ALKALINE PHOSPHATASE 47 IU/L (46-116); ANION GAP 13 (8-16); ASPARTATE AMINO TRANSFERASE 18 U/L (10-37); BILIRUBIN,TOTAL 0.5 MG/DL (0.1-1.0); BLOOD UREA NITROGEN 9 MG/DL (7-18); BUN/CREATININE RATIO 16.7 (10.0-20.0); CALCIUM 8.6 MG/DL (8.5-10.1); CHLORIDE 101 MMOL/L (99-107); CREATININE 0.54 MG/DL (0.40-0.90); GLUCOSE 125 MG/DL (70-104); LIPASE 128 U/L (73-393); SODIUM 138 MMOL/L (135-145); TOTAL CARBON DIOXIDE 24.4 MMOL/L (24-32); TOTAL PROTEIN 7.1 G/DL (6.4-8.2); eGFR > 90 ML/MIN
[2022-10-01] MEDS ORDERED: diphenhydrAMINE 50 mg/ml inj IV ONE (23:25)
[2022-10-01] MEDS ORDERED: proCHLORperazine 10 MG/2 ml inj IV ONE (23:25)
[2022-10-01] MEDS ORDERED: normal saline 1000ml 1,000 ML IV ONE (23:25)
[2022-10-01 23:38] LABS: URINE HCG NEGATIVE (NEG)
[2022-10-01 23:39] LABS: CLARITY,URINE SLIGHTLY CLOUDY (Clear); COLOR,URINE YELLOW (Yellow); GLUCOSE, URINE NEGATIVE (Neg); KETONES,URINE 40 mg/dl (Neg); LEUKOCYTE ESTERASE ,URINE NEGATIVE (Neg); NITRITES, URINE NEGATIVE (Neg); OCCULT BLOOD,URINE NEGATIVE (Neg); PH,URINE 7.5 (4.8-8.0); PROTEIN,URINE 30 mg/dl (Neg); UROBILINOGEN,URINE 0.2 E.U/dL (0.2-1.0)
[2022-10-01 23:42] LABS: UA COLLECTION TYPE CLN CATCH MIDSTREAM
[2022-10-01 23:45] LABS: FINE GRANULAR CAST 0-3 /LPF (NEGATIVE); HYALINE CASTS 0-3 /LPF (NEGATIVE); MUCUS STRANDS MANY /LPF (Neg); SQUAMOUS EPITHELIAL CELL,UR MANY /LPF (FEW)
[2022-10-01 23:46] LABS: BACTERIA,URINE FEW /HPF (Neg); RBC,URINE 0-2 /HPF (0-2); TRANSITIONAL EPI CELLS,URINE FEW /HPF; WBC,URINE 0-4 /HPF (0-4)
== END 2022-10-02 01:33 | disposition home or self-care (01) ==
LOC: ER 21:38
DX: R11.2 Nausea with vomiting, unspecified (principal); R10.31 Right lower quadrant pain; F31.9 Bipolar disorder, unspecified; F12.90 Cannabis use, unspecified, uncomplicated; Z88.1 Allergy status to other antibiotic agents; Z88.6 Allergy status to analgesic agent; Z90.49 Acquired absence of other specified parts of digestive tract; Z98.890 Other specified postprocedural states
CPT/HCPCS: 36415; 74176; 80053; 81001; 81025; 83690; 85025; 96361; 96374; 96375; 99285; J0780; J1200; J7030

== ENCOUNTER 2023-09-05 11:26 | Emergency (ER) | payer MEDICAID ==
[~2023-09-05] VITALS: Ht 154.9 cm; Wt 58.0 kg
[2023-09-05 12:13] VITALS: TEMP 99.1
[2023-09-05] MEDS: morphine 2 MG/ML inj. syringe IV PRN (12:51)
[2023-09-05] MEDS: ondansetron/PF 4mg/2ml inj IV ONE (12:51)
[2023-09-05 13:04] LABS: BASOPHILS % (AUTO) 0.1 % (0-1); EOSINOPHILS % (AUTO) 0 % (0-6); HEMATOCRIT 35.9 % (35.0-45.0); HEMOGLOBIN 11.8 g/dl (12.0-16.0); LYMPHOCYTES # (AUTO) 0.9 X10'3 (1.1-4.8); LYMPHOCYTES % (AUTO) 12.5 % (21-51); MEAN CORPUSCULAR HEMOGLOBIN 24.9 PG (27.0-31.0); MEAN CORPUSCULAR HGB CONC 32.9 g/dL (33.0-36.5); MEAN CORPUSCULAR VOLUME 75.8 FL (78-98); MEAN PLATELET VOLUME 8.7 FL (7.4-10.4); MONOCYTES # (AUTO) 0.6 X10'3 (0-0.9); MONOCYTES % (AUTO) 8.9 % (2-12); NEUTROPHILS # (AUTO) 5.4 X10'3 (1.8-7.7); NEUTROPHILS % (AUTO) 78.5 % (42-75); PLATELET COUNT 371 X10'3 (140-440); RED BLOOD COUNT 4.73 X10'6 (4.20-5.60); RED CELL DISTRIBUTION WIDTH 15.9 % (11.5-14.5); WHITE BLOOD COUNT 6.9 X10'3 (4.5-11.0)
[2023-09-05 13:16] LABS: ALANINE AMINOTRANSFERASE 38 U/L (12-78); ALBUMIN 4.5 G/DL (3.4-5.0); ALBUMIN/GLOBULIN RATIO 1.3 (1.1-1.5); ALKALINE PHOSPHATASE 52 IU/L (46-116); ANION GAP 11 (8-16); ASPARTATE AMINO TRANSFERASE 22 U/L (10-37); BLOOD UREA NITROGEN 16 MG/DL (7-18); BUN/CREATININE RATIO 21.6 (10.0-20.0); CALCIUM 9.3 MG/DL (8.5-10.1); CHLORIDE 100 MMOL/L (99-107); CREATININE 0.74 MG/DL (0.40-0.90); GLUCOSE 123 MG/DL (70-104); LIPASE 26 U/L (16-77); POTASSIUM 3.4 MMOL/L (3.5-5.1); SODIUM 138 MMOL/L (135-145); TOTAL CARBON DIOXIDE 27.3 MMOL/L (24-32); TOTAL PROTEIN 8.1 G/DL (6.4-8.2); eCRCL 82 ML/MIN; eGFR 90 ML/MIN
[2023-09-05] MEDS: diphenhydrAMINE 50 mg/ml inj IV STA (13:47)
[2023-09-05] MEDS: haloperidol lactate 5mg/ml inj IVH STA (13:47)
[2023-09-05 13:50] LABS: BILIRUBIN,URINE SMALL (Neg); CLARITY,URINE SLIGHTLY CLOUDY (Clear); COLOR,URINE YELLOW (Yellow); GLUCOSE, URINE NEGATIVE (Neg); KETONES,URINE 40 mg/dl (Neg); LEUKOCYTE ESTERASE ,URINE NEGATIVE (Neg); NITRITES, URINE NEGATIVE (Neg); OCCULT BLOOD,URINE TRACE-INTACT (Neg); PH,URINE 6.5 (4.8-8.0); PROTEIN,URINE TRACE mg/dl (Neg)
[2023-09-05 13:51] LABS: URINE HCG NEGATIVE (NEG)
[2023-09-05 13:58] LABS: BACTERIA,URINE FEW /HPF (Neg); UA COLLECTION TYPE CLN CATCH MIDSTREAM; WBC,URINE 0-4 /HPF (0-4)
[2023-09-05 13:59] LABS: MUCUS STRANDS MANY /LPF (Neg); SQUAMOUS EPITHELIAL CELL,UR MODERATE /LPF (FEW)
[2023-09-05] MEDS: metoclopramide 5 mg/ml inj IV ONE (14:34)
[2023-09-05 15:19] VITALS: BP 105/71; PULSE 85; RESP 14; O2SAT 96
== END 2023-09-05 15:21 | disposition home or self-care (01) ==
LOC: ER 11:27
DX: R11.15 Cyclical vomiting syndrome unrelated to migraine (principal); R19.7 Diarrhea, unspecified; E07.9 Disorder of thyroid, unspecified; F41.9 Anxiety disorder, unspecified; F32.A Depression, unspecified; F12.90 Cannabis use, unspecified, uncomplicated; Z72.89 Other problems related to lifestyle; Z90.49 Acquired absence of other specified parts of digestive tract; Z88.8 Allergy status to other drugs, medicaments and biological substances; Z79.899 Other long term (current) drug therapy; Z79.2 Long term (current) use of antibiotics
CPT/HCPCS: 36415; 71045; 80053; 81001; 81025; 83690; 83735; 85025; 93005; 96374; 96375; 99285; J1200; J1630; J2270; J2405; J2765

== ENCOUNTER 2023-11-10 21:34 | Emergency (ER) | payer MEDICAID ==
[~2023-11-10] VITALS: Ht 154.9 cm; Wt 59.1 kg
[2023-11-10 21:37] VITALS: BP 133/90; RESP 20; TEMP 98.2; O2SAT 97
[2023-11-10 21:58] LABS: BASOPHILS % (AUTO) 0.1 % (0-1); EOSINOPHILS % (AUTO) 0 % (0-6); HEMATOCRIT 34.9 % (35.0-45.0); HEMOGLOBIN 11.4 g/dl (12.0-16.0); LYMPHOCYTES # (AUTO) 0.5 X10'3 (1.1-4.8); LYMPHOCYTES % (AUTO) 7.9 % (21-51); MEAN CORPUSCULAR HEMOGLOBIN 24.7 PG (27.0-31.0); MEAN CORPUSCULAR HGB CONC 32.7 g/dL (33.0-36.5); MEAN CORPUSCULAR VOLUME 75.3 FL (78-98); MEAN PLATELET VOLUME 7.9 FL (7.4-10.4); MONOCYTES # (AUTO) 0.2 X10'3 (0-0.9); MONOCYTES % (AUTO) 2.4 % (2-12); NEUTROPHILS # (AUTO) 5.8 X10'3 (1.8-7.7); NEUTROPHILS % (AUTO) 89.6 % (42-75); PLATELET COUNT 332 X10'3 (140-440); RED BLOOD COUNT 4.63 X10'6 (4.20-5.60); RED CELL DISTRIBUTION WIDTH 15.4 % (11.5-14.5); WHITE BLOOD COUNT 6.4 X10'3 (4.5-11.0)
[2023-11-10 22:07] LABS: ALBUMIN 4.6 G/DL (3.4-5.0); ANION GAP 16 (8-16); BLOOD UREA NITROGEN 14 MG/DL (7-18); BUN/CREATININE RATIO 20.3 (10.0-20.0); CALCIUM 9.2 MG/DL (8.5-10.1); CHLORIDE 101 MMOL/L (99-107); CREATININE 0.69 MG/DL (0.40-0.90); GLUCOSE 159 MG/DL (70-104); LIPASE 22 U/L (16-77); POTASSIUM 3.4 MMOL/L (3.5-5.1); SODIUM 138 MMOL/L (135-145); TOTAL CARBON DIOXIDE 21.2 MMOL/L (24-32); eCRCL 88 ML/MIN; eGFR > 90 ML/MIN
[2023-11-12] MEDS ORDERED: ONDA4TAB12 PO (14:40)
== END 2023-11-11 00:29 | disposition left against medical advice (07) ==
LOC: ER 21:34
DX: R11.15 Cyclical vomiting syndrome unrelated to migraine (principal); Z53.21 Procedure and treatment not carried out due to patient leaving prior to being seen by health care provider
CPT/HCPCS: 36415; 80048; 83690; 85025

== ENCOUNTER 2023-11-12 09:37 | Emergency (ER) | payer MEDICAID ==
[~2023-11-12] VITALS: Ht 154.9 cm; Wt 59.1 kg
[2023-11-12 09:43] VITALS: TEMP 98.9
[2023-11-12 10:17] LABS: BASOPHILS % (AUTO) 0.2 % (0-1); EOSINOPHILS % (AUTO) 0.1 % (0-6); HEMOGLOBIN 11.2 g/dl (12.0-16.0); LYMPHOCYTES # (AUTO) 1.4 X10'3 (1.1-4.8); LYMPHOCYTES % (AUTO) 27.5 % (21-51); MEAN CORPUSCULAR HEMOGLOBIN 24.9 PG (27.0-31.0); MEAN CORPUSCULAR HGB CONC 32.8 g/dL (33.0-36.5); MEAN CORPUSCULAR VOLUME 75.9 FL (78-98); MEAN PLATELET VOLUME 8.1 FL (7.4-10.4); MONOCYTES # (AUTO) 0.5 X10'3 (0-0.9); MONOCYTES % (AUTO) 9.8 % (2-12); NEUTROPHILS # (AUTO) 3.1 X10'3 (1.8-7.7); NEUTROPHILS % (AUTO) 62.4 % (42-75); PLATELET COUNT 318 X10'3 (140-440); RED BLOOD COUNT 4.48 X10'6 (4.20-5.60); RED CELL DISTRIBUTION WIDTH 15.1 % (11.5-14.5)
[2023-11-12 10:32] LABS: ALANINE AMINOTRANSFERASE 52 U/L (12-78); ALBUMIN 4.1 G/DL (3.4-5.0); ALBUMIN/GLOBULIN RATIO 1.3 (1.1-1.5); ALKALINE PHOSPHATASE 47 IU/L (46-116); ANION GAP 9 (8-16); ASPARTATE AMINO TRANSFERASE 22 U/L (10-37); BILIRUBIN,TOTAL 0.9 MG/DL (0.1-1.0); BLOOD UREA NITROGEN 17 MG/DL (7-18); BUN/CREATININE RATIO 25.8 (10.0-20.0); CALCIUM 8.7 MG/DL (8.5-10.1); CHLORIDE 98 MMOL/L (99-107); CREATININE 0.66 MG/DL (0.40-0.90); GLUCOSE 124 MG/DL (70-104); LIPASE 23 U/L (16-77); SODIUM 135 MMOL/L (135-145); TOTAL CARBON DIOXIDE 27.6 MMOL/L (24-32); TOTAL PROTEIN 7.3 G/DL (6.4-8.2); eCRCL 91 ML/MIN; eGFR > 90 ML/MIN
[2023-11-12 10:37] LABS: POTASSIUM 2.9 MMOL/L (3.5-5.1)
[2023-11-12] MEDS: normal saline 1000ML IV soln IVB ONE (10:51)
[2023-11-12] MEDS: diphenhydrAMINE 50 mg/ml inj IV ONE (10:52)
[2023-11-12] MEDS: proCHLORperazine 10 MG/2 ml inj IV ONE (10:53)
[2023-11-12] MEDS: morphine 4 MG/ML inj SYRINge IV ONE (10:55)
[2023-11-12] MEDS: potassium Cl 20 mEq SR tablet PO STA (12:35)
[2023-11-12] MEDS ORDERED: LIDOcaine 2% Viscous 15ml cup MM PRN (12:40)
[2023-11-12] MEDS: normal saline 1000ml 1,000 ML IV SCH (13:10)
[2023-11-12] MEDS: pantoprazole 40 MG vial IV STA (13:10)
[2023-11-12] MEDS: sucralfate 1 gm tablet PO ONE (13:50)
[2023-11-12 14:31] LABS: URINE HCG NEGATIVE (NEG)
[2023-11-12 14:34] LABS: BILIRUBIN,URINE NEGATIVE (Neg); CLARITY,URINE CLEAR (Clear); COLOR,URINE YELLOW (Yellow); GLUCOSE, URINE NEGATIVE (Neg); KETONES,URINE 40 mg/dl (Neg); LEUKOCYTE ESTERASE ,URINE NEGATIVE (Neg); NITRITES, URINE NEGATIVE (Neg); OCCULT BLOOD,URINE NEGATIVE (Neg); PH,URINE 6.5 (4.8-8.0); PROTEIN,URINE NEGATIVE (Neg); UROBILINOGEN,URINE 0.2 E.U/dL (0.2-1.0)
[2023-11-12 14:37] LABS: UA COLLECTION TYPE VOIDED
[2023-11-12] MEDS ORDERED: ONDA4TAB12 PO (14:40)
[2023-11-12 15:01] VITALS: PULSE 55
[2023-11-12 15:03] VITALS: BP 93/63; RESP 19; O2SAT 96
[2023-11-12 15:12] LABS: URINE AMPHETAMINE SCREEN NEGATIVE (Neg); URINE BARBITUATE SCREEN NEGATIVE (Neg); URINE BENZODIAZEPINES SCREEN NEGATIVE (Neg); URINE CANNABINOID SCREEN POSITIVE (Neg); URINE COCAINE SCREEN NEGATIVE (Neg); URINE METHADONE SCREEN NEGATIVE (Neg); URINE OPIATE SCREEN POSITIVE (Neg); URINE PHENCYCLIDINE SCREEN NEGATIVE (Neg)
== END 2023-11-12 15:03 | disposition home or self-care (01) ==
LOC: ER 09:38
DX: R11.2 Nausea with vomiting, unspecified (principal); E87.6 Hypokalemia; R10.32 Left lower quadrant pain; E86.0 Dehydration; F31.9 Bipolar disorder, unspecified; F12.90 Cannabis use, unspecified, uncomplicated; Z88.1 Allergy status to other antibiotic agents; Z79.899 Other long term (current) drug therapy; Z79.1 Long term (current) use of non-steroidal anti-inflammatories (NSAID); Z98.890 Other specified postprocedural states; Z90.49 Acquired absence of other specified parts of digestive tract
CPT/HCPCS: 36415; 71045; 80053; 80305; 81003; 81025; 83690; 85025; 93005; 96361; 96374; 96375; 99285; C9113; J0780; J1200; J2270; J7030

== ENCOUNTER 2024-08-03 17:28 | Emergency (ER) | payer MEDICAID ==
[~2024-08-03] VITALS: Ht 154.9 cm; Wt 57.0 kg
[~2024-08-03 17:28] MED LIST changes: +ONDA-243 PO; +ONDA-245 PO; -ONDA4TAB12 PO; -ONDA8TAB13 PO
[2024-08-03] MEDS ORDERED: AMOX-117 PO (18:52)
[2024-08-03] MEDS ORDERED: FLUT16SP2 BOTHNARES (18:53)
[2024-08-03] MEDS ORDERED: PSEU120T56 PO (18:53)
[2024-08-03 19:03] VITALS: BP 128/86; PULSE 82; RESP 18; TEMP 98.6; O2SAT 97
== END 2024-08-03 19:05 | disposition home or self-care (01) ==
LOC: ER 17:29
DX: J32.9 Chronic sinusitis, unspecified (principal); J22 Unspecified acute lower respiratory infection; F31.9 Bipolar disorder, unspecified; F41.9 Anxiety disorder, unspecified; F12.90 Cannabis use, unspecified, uncomplicated; Z88.1 Allergy status to other antibiotic agents; Z90.49 Acquired absence of other specified parts of digestive tract
CPT/HCPCS: 99283

== ENCOUNTER 2024-10-06 04:34 | Emergency (ER) | payer MEDICAID ==
[~2024-10-06] VITALS: Ht 154.9 cm; Wt 60.0 kg
[~2024-10-06 04:34] MED LIST changes: +FLUT16SP2 BOTHNARES; +PSEU120T56 PO
--- NOTE | 2024-10-06 04:41 | Physician Documentation ---
History of Present Illness ~ Stated Complaint: VOMITING Time Seen by MD: 04:38 OK to notify your PCP?: Yes Primary Medical Doctor: [facility] Source: patient, RN/MD, RN notes reviewed Mode of Arrival: POV Exam Limitations: no limitations HPI Patient presents to the emergency room with cyclical vomiting symptoms since yesterday at 10:00 a.m.. She had taken no medicine prior to calling EMS. EMS administered 1000 mg of Tylenol as well as 4 mg of Zofran. Medication Reconciliation Allergies: Coded Allergies: levofloxacin (Verified Allergy, Intermediate, HIVES, 10/06/24) Scheduled Esomeprazole Magnesium (Nexium), 1 CAP PO DAILY Famotidine (Pepcid), 1 TAB PO DAILY Fluticasone Propionate (Flonase), 2 SPRAYS BOTHNARES DAILY Ibuprofen (Ibuprofen), 1 TAB PO Q8H Nitrofurantoin Monohyd/M-Cryst (Macrobid 100 mg Capsule), 1 CAP PO Q12H Ondansetron Hcl (Zofran), 1 TAB PO Q8H Pantoprazole Sodium (PROTONIX tablet), 40 MG PO DAILY Pantoprazole Sodium (PROTONIX tablet), 40 MG PO DAILY Pantoprazole Sodium (PROTONIX tablet), 1 TAB PO DAILY Prochlorperazine Maleate* (Compazine*), 10 MG PO BID Pseudoephedrine HCl (Sudafed 12 Hour), 1 TAB PO Q12H Sucralfate (Carafate), 10 ML PO Q6H Scheduled PRN Ibuprofen (Ibuprofen), 1 TAB PO Q8H PRN for pain ONDANSETRON ODT 4mg tablet (Ondansetron Odt), 4 MG PO Q8HPRN PRN for nausea/vomiting ONDANSETRON ODT 4mg tablet (Ondansetron Odt), 1 TABLET PO Q6H PRN for nausea/vomiting ONDANSETRON ODT 4mg tablet (Ondansetron Odt), 4 MG PO Q4H PRN for nausea ONDANSETRON ODT 4mg tablet (Ondansetron Odt), 1 TAB PO Q6H PRN PRN for nausea/vomiting Ondansetron (Zofran Odt), 8 MG PO QID PRN for nausea/vomiting Ondansetron (Zofran Odt), 4 MG PO Q6H PRN for nausea/vomiting Ondansetron 8mg ODT (Ondansetron Odt), 1 TAB PO TID PRN for nausea/vomiting Ondansetron ODT* (Zofran ODT*), 4 MG PO Q6H PRN for nausea/vomiting, (Reported) Oxycodone Hcl/Acetaminophen 5/325 MG* (Percocet 5/325 MG*), 1-2 TAB PO Q6H PRN for pain, (Reported) Past Medical History Past Medical History: Cholelithiasis, Gastritis, Pancreatitis, Kidney Stones, UTI, Hyperthyroidism, Chronic Back Pain, Anxiety, Bipolar, Depression Past Surgical History: appendectomy, cholecystectomy, other Alcohol Use: Occasionally Drug Use: marijuana Lives with: S/O, Family Lives In: Home Occupation: employed Review of Systems ROS All review of systems negative except as per HPI Physical Exam Vital Signs: RN Vital Signs have been reviewed: Yes Physical Exam General: Patient is awake, alert, oriented x4 in mild distress Head: Normocephalic and atraumatic. Eyes: Conjunctival normal. EOMI. PERRL. ENT: Mucous membranes moist. Neck: Supple, trachea is midline. Chest: Clear to auscultation bilaterally without rales, rhonchi, or wheezes. There is no accessory muscle use or retractions. Cardiac: RRR without murmurs, gallops, or rubs. Abd: Soft, nondistended, diffuse abdominal tenderness to palpation without peritonitis Progress Results/Orders Reviewed/noted all lab results: Yes Results/Orders Orders - NAIF WYNN MD Straight Cath For Urine Sample (10/06/24 04:36) Completed Orders - NAIF WYNN MD Urinalysis, Cult If Indicated (10/06/24 04:36) Hcg, Ur Ql (10/06/24 04:36) Cbc/Diff (10/06/24 04:36) Lipase (10/06/24 04:36) CMP (10/06/24 04:36) Normal Saline 1000ml (Sodium Chloride 10 (10/06/24 04:40) Ondansetron Inj. (Zofran 4mg/2ml Vial) (10/06/24 04:40) Haloperidol Lact. (Haldol) (10/06/24 04:40) Prochlorperazine Inj (Compazine Inj) (10/06/24 04:40) Diphenhydramine Inj (Benadryl Inj.) (10/06/24 04:40) Ketorolac Trometh 15mg/Ml Vial (Toradol (10/06/24 04:45) Man Diff (10/06/24 05:23) MG (10/06/24 05:23) Vital Signs 10/06/24 10/06/24 10/06/24 10/06/24 04:37 04:52 05:00 05:58 Temp 97.6 Pulse 66 Resp 20 16 20 16 B/P (MAP) 131/66 Pulse Ox 98 O2 Flow Rate 0 10/06/24 10/06/24 10/06/24 10/06/24 06:30 07:11 09:30 10:01 Temp 97.6 97.6 97.6 Pulse 74 63 68 Resp 20 16 18 18 B/P (MAP) 143/97 (112) 125/75 (92) 132/91 Pulse Ox 98 99 100 O2 Flow Rate 0 0 Laboratory Tests Test 10/06/24 05:23 10/06/24 08:10 White Blood Count 2.8 L Red Blood Count 4.00 L Hemoglobin 9.3 L Hematocrit 28.8 L Mean Corpuscular Volume 71.7 L Mean Corpuscular Hemoglobin 23.2 L Mean Corpuscular Hemoglobin Concent 32.3 L Red Cell Distribution Width 17.4 H Platelet Count 165 Mean Platelet Volume 8.3 Neutrophils (%) (Auto) 75.0 Lymphocytes (%) (Auto) 12.9 L Monocytes (%) (Auto) 11.4 Eosinophils (%) (Auto) 0.1 Basophils (%) (Auto) 0.6 Neutrophils # (Auto) 2.1 Lymphocytes # (Auto) 0.4 L Monocytes # (Auto) 0.3 Eosinophils # (Auto) 0.0 Basophils # (Auto) 0.0 CBC Comment Differential Total Cells Counted 100 Neutrophils % (Manual) 81.0 H Lymphocytes % (Manual) 9.0 L Monocytes % (Manual) 10.0 Platelet Estimate Normal Red Blood Cell Morphology Perf Hypochromasia 1+ Basophilic Stippling Anisocytosis 1+ Microcytosis 1+ Macrocytosis Elliptocytes Few Reticulocyte Count (auto) 0.8 Absolute Reticulocyte Count 11219 Sodium Level 142 Potassium Level 3.6 Chloride Level 108 H Carbon Dioxide Level 23.1 L Anion Gap 11 Blood Urea Nitrogen 8 Creatinine 0.65 Estimated GFR/1.73 m2 > 90 BUN/Creatinine Ratio 12.3 Glucose Level 118 H Calcium Level 7.6 L Magnesium Level 1.6 Total Bilirubin 0.3 Aspartate Amino Transf (AST/SGOT) 17 Alanine Aminotransferase (ALT/SGPT) 22 Alkaline Phosphatase 49 Total Protein 5.8 L Albumin 3.5 Globulin 2.3 L Albumin/Globulin Ratio 1.5 Lipase 23 Chemistry Comments Urine Specimen Description Cln catch midstream Urine Color Straw Urine Clarity Clear Urine pH 6.5 Urine Specific [place] 1.020 Urine Protein Negative Urine Glucose (UA) Negative Urine Ketones >=80 Urine Occult Blood Negative Urine Nitrite Negative Urine Bilirubin Negative Urine Urobilinogen 0.2 Urine Leukocyte Esterase Negative Urine Culture Indicated Not ind Volume Urine Centrifuged 10 ml Urine HCG, Qualitative Negative Urine Comment Urine Opiates Screen Negative Urine Methadone Screen Negative Urine Fentanyl Screen Negative Urine Barbiturates Screen Negative Urine Phencyclidine Screen Negative Urine Amphetamines Screen Negative Urine Benzodiazepines Screen Negative Urine Cocaine Screen Negative Urine Cannabinoids Screen Positive Drug Screen Comment Re-Evaluation Re-Evaluation : Re-Evaluation: Improved Progress Patient was seen by the morning physician signed out to me. Laboratory work was already completed which showed worsening anemia with a hemoglobin of nine and hematocrit of 28. Patient states she has heavy menstrual periods recommended seeing Gynecology. She denies any black tarry stools. White count is also bit low at 2.8 platelets are borderline low at 165. There is a slight left shift at 81. Chemistries are within normal limits except some borderline glucose with a level of 118. CO2 slightly low at 23 otherwise chemistries LFTs and lipase are within normal limits tox screen was positive for marijuana. Patient is still had some retching. She was hydrated multiple L. her urinalysis and hCG were within normal limits. Patient was then given reassurance told to stop smoking pot. Patient received a prescription for Zofran. Discussed the symptoms and findings with the at bedside. Continuous production posting clerk interpretation shows normal sinus rhythm heart rate 70s, no ectopy, normal, my interpretation. Pulse oximetry monitor interpretation shows normal oxygenation 98% room air, normal, my interpretation. Medical Decision Making Additional info obtained from: old records Diff Dx N/V/D:Considerations: Include: Appendicitis, Bowel obstruction, Dehydration, DKA, Diverticulitis, Diverticulosis, Drug toxicity, Electrolyte imbalance, Food poisoning, Gastroenteritis, GE reflux, GI bleed, Hepatitis, Hernia, Hypovolemia, Hypotension, Inflammatory BD, Impaction, Malnutrition, Pancreatitis, Renal failure, Urolithiasis, Urinary obstruction, UTI, Other Departure Time of Disposition: 09:44 Disposition: 01 HOME / SELF CARE / HOMELESS Impression: Primary Impression: Cyclical vomiting Condition: Stable Discharge Instructions: Nausea and Vomiting, Adult Referrals: NO PRIMARY CARE PROVIDER (PCP) Prescriptions ONDANSETRON ODT 4mg tablet (ONDANSETRON ODT) 4 Mg Tab.rapdis 1 TAB PO Q6H PRN PRN for nausea/vomiting for 4 Days, #16 TAB 0 Refills Prov: RICKI CULLEN MD 10/06/24 Education Educated: Patient Educated regarding: diagnosis, treatment, prognosis, need for follow up Signature Scribe Signature: Scribed for Ricki Cullen MD by Katie Lo . 10/06/24 09:44 (Departure) Attestation: The note accurately reflects work and decisions made by me.Naif Wynn MD 10/07/24 05:33 The note accurately reflects work and decisions made by me.Ricki Cullen MD 10/06/24 11:03 NAIF WYNN MD October 06, 2024 04:41 KATIE JEROME October 06, 2024 09:45 RICKI CULLEN MD October 06, 2024 11:03
[2024-10-06] MEDS: normal saline 1000ML IV soln IVB ONE ×2 (04:47→07:20)
[2024-10-06] MEDS: ondansetron/PF 4mg/2ml inj IV ONE (04:59)
[2024-10-06] MEDS: ketorolac trometh 15mg/ml vial 15 MG/ML ML IV ONE (05:00)
[2024-10-06] MEDS: proCHLORperazine 10 MG/2 ml inj IV ONE (05:02)
[2024-10-06] MEDS: diphenhydrAMINE 50 mg/ml inj IV ONE (05:03)
[2024-10-06] MEDS: haloperidol lactate 5mg/ml inj IM ONE (05:04)
[2024-10-06 06:00] LABS: ALANINE AMINOTRANSFERASE 22 U/L (12-78); ALBUMIN 3.5 G/DL (3.4-5.0); ALBUMIN/GLOBULIN RATIO 1.5 (1.1-1.5); ALKALINE PHOSPHATASE 49 IU/L (46-116); ANION GAP 11 (8-16); ASPARTATE AMINO TRANSFERASE 17 U/L (10-37); BILIRUBIN,TOTAL 0.3 MG/DL (0.1-1.0); BLOOD UREA NITROGEN 8 MG/DL (7-18); BUN/CREATININE RATIO 12.3 (10.0-20.0); CALCIUM 7.6 MG/DL (8.5-10.1); CHLORIDE 108 MMOL/L (99-107); CREATININE 0.65 MG/DL (0.40-0.90); GLUCOSE 118 MG/DL (70-104); LIPASE 23 U/L (16-77); POTASSIUM 3.6 MMOL/L (3.5-5.1); SODIUM 142 MMOL/L (135-145); TOTAL CARBON DIOXIDE 23.1 MMOL/L (24-32); TOTAL PROTEIN 5.8 G/DL (6.4-8.2); eCRCL 92 ML/MIN; eGFR > 90 ML/MIN
[2024-10-06 06:02] LABS: BASOPHILS % (AUTO) 0.6 % (0-1); EOSINOPHILS % (AUTO) 0.1 % (0-6); HEMATOCRIT 28.8 % (35.0-45.0); HEMOGLOBIN 9.3 g/dl (12.0-16.0); LYMPHOCYTES # (AUTO) 0.4 X10'3 (1.1-4.8); LYMPHOCYTES % (AUTO) 12.9 % (21-51); MEAN CORPUSCULAR HEMOGLOBIN 23.2 PG (27.0-31.0); MEAN CORPUSCULAR HGB CONC 32.3 g/dL (33.0-36.5); MEAN CORPUSCULAR VOLUME 71.7 FL (78-98); MEAN PLATELET VOLUME 8.3 FL (7.4-10.4); MONOCYTES # (AUTO) 0.3 X10'3 (0-0.9); MONOCYTES % (AUTO) 11.4 % (2-12); NEUTROPHILS # (AUTO) 2.1 X10'3 (1.8-7.7); PLATELET COUNT 165 X10'3 (140-440); RED BLOOD COUNT 4.01 X10'6 (4.20-5.60); RED CELL DISTRIBUTION WIDTH 17.4 % (11.5-14.5); WHITE BLOOD COUNT 2.8 X10'3 (4.5-11.0)
[2024-10-06 07:19] LABS: ANISOCYTOSIS 1+; MICROCYTOSIS 1+; PLATELET ESTIMATE NORMAL; TOTAL CELLS COUNTED 100
[2024-10-06 07:20] LABS: ELLIPTOCYTES FEW; HYPOCHROMASIA 1+
[2024-10-06 07:27] LABS: MAGNESIUM 1.6 MG/DL (1.5-2.4)
[2024-10-06 07:46] LABS: RETICULOCYTE % (AUTO) 0.8 % (0.5-1.5)
[2024-10-06 08:24] LABS: URINE HCG NEGATIVE (NEG)
[2024-10-06 08:26] LABS: BILIRUBIN,URINE NEGATIVE (Neg); CLARITY,URINE CLEAR (Clear); COLOR,URINE STRAW (Yellow); GLUCOSE, URINE NEGATIVE (Neg); KETONES,URINE >=80 mg/dl (Neg); LEUKOCYTE ESTERASE ,URINE NEGATIVE (Neg); OCCULT BLOOD,URINE NEGATIVE (Neg); PH,URINE 6.5 (4.8-8.0); PROTEIN,URINE NEGATIVE (Neg); UROBILINOGEN,URINE 0.2 E.U/dL (0.2-1.0)
[2024-10-06 08:27] LABS: UA COLLECTION TYPE CLN CATCH MIDSTREAM
[2024-10-06 08:29] LABS: NITRITES, URINE NEGATIVE (Neg)
[2024-10-06 08:35] LABS: URINE AMPHETAMINE SCREEN NEGATIVE (Neg); URINE BARBITUATE SCREEN NEGATIVE (Neg); URINE BENZODIAZEPINES SCREEN NEGATIVE (Neg); URINE CANNABINOID SCREEN POSITIVE (Neg); URINE COCAINE SCREEN NEGATIVE (Neg); URINE METHADONE SCREEN NEGATIVE (Neg); URINE OPIATE SCREEN NEGATIVE (Neg); URINE PHENCYCLIDINE SCREEN NEGATIVE (Neg)
[2024-10-06] MEDS ORDERED: ONDA-243 PO (09:46)
[2024-10-06 10:01] VITALS: BP 132/91; PULSE 68; RESP 18; TEMP 97.6; O2SAT 100
== END 2024-10-06 10:07 | disposition home or self-care (01) ==
LOC: ER 04:35
DX: R11.15 Cyclical vomiting syndrome unrelated to migraine (principal); F31.9 Bipolar disorder, unspecified; F41.9 Anxiety disorder, unspecified; Z88.1 Allergy status to other antibiotic agents; Z88.8 Allergy status to other drugs, medicaments and biological substances; Z90.49 Acquired absence of other specified parts of digestive tract
CPT/HCPCS: 36415; 80053; 80305; 81003; 81025; 83690; 83735; 85025; 85045; 96361; 96372; 96374; 96375; 99284; J0780; J1200; J1630; J1885; J2405; J7030; 85007

== ENCOUNTER 2024-10-07 21:38 | Emergency (ER) | payer MEDICAID ==
[~2024-10-07] VITALS: Ht 154.9 cm; Wt 59.0 kg
[2024-10-07 21:50] VITALS: BP 140/90; PULSE 80; RESP 18; TEMP 97.9; O2SAT 96
== END 2024-10-07 23:38 | disposition left against medical advice (07) ==
LOC: ER 21:39
DX: R11.2 Nausea with vomiting, unspecified (principal); Z53.21 Procedure and treatment not carried out due to patient leaving prior to being seen by health care provider; Z88.1 Allergy status to other antibiotic agents

== ENCOUNTER 2024-10-21 22:25 | Emergency (ER) | payer MEDICAID ==
[~2024-10-21] VITALS: Ht 154.9 cm; Wt 54.5 kg
[2024-10-21 22:31] VITALS: BP 133/84; PULSE 91; O2SAT 99
--- NOTE | 2024-10-21 23:03 | Physician Documentation ---
HPI ~ General Chief Complaint: Tooth Problem Stated Complaint: TOOTH PAIN Time Seen by MD: 23:01 Primary Medical Doctor: [facility] History of Present Illness HPI Comment 34-year-old female who presents due to concerns for pain to the left lower jaw in a molar. She reports that she does have a dental appointment on Friday. However, she presents primarily due to pain. No fevers or chills, chest pain or shortness of breath, nausea, vomiting, diarrhea. Medication Reconciliation Allergies: Coded Allergies: levofloxacin (Verified Allergy, Intermediate, HIVES, 10/21/24) Scheduled Esomeprazole Magnesium (Nexium), 1 CAP PO DAILY Famotidine (Pepcid), 1 TAB PO DAILY Fluticasone Propionate (Flonase), 2 SPRAYS BOTHNARES DAILY Ibuprofen (Ibuprofen), 1 TAB PO Q8H Nitrofurantoin Monohyd/M-Cryst (Macrobid 100 mg Capsule), 1 CAP PO Q12H Ondansetron Hcl (Zofran), 1 TAB PO Q8H Pantoprazole Sodium (PROTONIX tablet), 40 MG PO DAILY Pantoprazole Sodium (PROTONIX tablet), 40 MG PO DAILY Pantoprazole Sodium (PROTONIX tablet), 1 TAB PO DAILY Prochlorperazine Maleate* (Compazine*), 10 MG PO BID Pseudoephedrine HCl (Sudafed 12 Hour), 1 TAB PO Q12H Sucralfate (Carafate), 10 ML PO Q6H Scheduled PRN Ibuprofen (Ibuprofen), 1 TAB PO Q8H PRN for pain ONDANSETRON ODT 4mg tablet (Ondansetron Odt), 4 MG PO Q8HPRN PRN for nausea/vomiting ONDANSETRON ODT 4mg tablet (Ondansetron Odt), 1 TABLET PO Q6H PRN for nausea/vomiting ONDANSETRON ODT 4mg tablet (Ondansetron Odt), 4 MG PO Q4H PRN for nausea ONDANSETRON ODT 4mg tablet (Ondansetron Odt), 1 TAB PO Q6H PRN PRN for nausea/vomiting Ondansetron (Zofran Odt), 8 MG PO QID PRN for nausea/vomiting Ondansetron (Zofran Odt), 4 MG PO Q6H PRN for nausea/vomiting Ondansetron 8mg ODT (Ondansetron Odt), 1 TAB PO TID PRN for nausea/vomiting Ondansetron ODT* (Zofran ODT*), 4 MG PO Q6H PRN for nausea/vomiting, (Reported) Oxycodone Hcl/Acetaminophen 5/325 MG* (Percocet 5/325 MG*), 1-2 TAB PO Q6H PRN for pain, (Reported) Past Medical History Past Medical History: Cholelithiasis, Gastritis, Pancreatitis, Kidney Stones, UTI, Hyperthyroidism, Chronic Back Pain, Anxiety, Bipolar, Depression Past Surgical History: appendectomy, cholecystectomy, other Alcohol Use: Occasionally Drug Use: marijuana Lives with: S/O, Family Lives In: Home Occupation: employed Review of Systems ROS As stated above in the HPI, otherwise all systems are reviewed and negative. Physical Exam Vital Signs: Temperature: 98.9, Source: Oral, Heart Rate: 91, Respiratory Rate: 18, BP: 133/84, Pulse Oximetry: 99, Weight: 54.550 Physical Exam General: Alert, no apparent distress. HEENT: PERRL, EOMI, no injection, moist mucous membranes. No trismus. No abscess. Uvula visible midline. Neck: Full range of motion. Respiratory: Lungs clear, no respiratory distress. Chest: No accessory muscle use. Cardiovascular: Regular rate and rhythm, no murmurs. Gastrointestinal: Soft, nontender, nondistended. Bowels sounds present. Extremities: Normal range of motion, no deformity. Neurologic: Oriented x4. Psychiatric: Normal mood and affect. Skin: Normal color, warm and dry. No edema, no ecchymosis. Progress Results/Orders Results/Orders Vital Signs 10/21/24 22:31 Temp 98.9 Pulse 91 Resp 18 B/P (MAP) 133/84 Pulse Ox 99 Medical Decision Making Additional Comment This is a well-appearing afebrile 34-year-old female who presents due to dental pain. She is found to have no trismus. No abscess. She is appropriate for treatment with oral antibiotics, naproxen for pain, and instructions to see her dentist on Friday has planned. Departure Time of Disposition: 23:14 Disposition: HOME / SELF CARE / HOMELESS Impression: Primary Impression: Toothache Additional Impression: Dental caries Condition: Stable Discharge Instructions: Dental Caries, Adult, Dental Pain Additional Instructions: See your dentist Friday as planned. Take the Naproxen as needed for pain. Take the Augmentin for presumed infection. Return if worse. Referrals: NO PRIMARY CARE PROVIDER (PCP) Prescriptions Naproxen (Naproxen) 500 Mg Tablet 1 TAB PO Q12H, #20 TAB Prov: MEGHAN BLACK NP 10/21/24 Amox Tr/Potassium Clavulanate (Augmentin 875-125 Tablet) 1 Each Tablet 1 TAB PO Q12H for 7 Days, #14 TAB Prov: MEGHAN BLACK NP 10/21/24 Education Educated: Patient Educated regarding: diagnosis, treatment, prognosis, need for follow up Signature Scribe Signature: no scribe Attestation: The note accurately reflects work and decisions made by me.Meghan Egan NP 10/21/24 23:16 MEGHAN BLACK NP Oct 21, 2024 23:03
[2024-10-21] MEDS ORDERED: NAPR-56 PO (23:15)
[2024-10-21] MEDS ORDERED: AMOX-117 PO (23:15)
[2024-10-21 23:18] VITALS: TEMP 98.9
[2024-10-21] MEDS: ondansetron 4mg rapidly disintigrating tab PO ONE (23:23)
[2024-10-21 23:24] VITALS: RESP 18
[2024-10-21] MEDS: HYDROcodone/acetaminophen 10/325mg tab PO ONE (23:24)
[2024-10-21] MEDS: amox tr/potassium clavulanate 875/125mg TAB PO ONE (23:26)
[2024-10-21] MEDS: ketorolac trometh 30MG/ML vial 30 MG/ML VIAL IM ONE (23:26)
== END 2024-10-21 23:31 | disposition home or self-care (01) ==
LOC: ER 22:26
DX: K02.9 Dental caries, unspecified (principal); F41.9 Anxiety disorder, unspecified; F31.9 Bipolar disorder, unspecified; F12.90 Cannabis use, unspecified, uncomplicated; Z88.1 Allergy status to other antibiotic agents; Z90.49 Acquired absence of other specified parts of digestive tract; Z79.899 Other long term (current) drug therapy; Z72.89 Other problems related to lifestyle
CPT/HCPCS: 96372; 99284; J1885

== ENCOUNTER 2024-10-23 22:51 | Emergency (ER) | payer MEDICAID ==
[~2024-10-23] VITALS: Ht 154.9 cm; Wt 54.5 kg
[~2024-10-23 22:51] MED LIST changes: +AMOX-117 PO; +NAPR-56 PO
[2024-10-23 23:08] VITALS: BP 110/62; PULSE 72; RESP 15; TEMP 97.6; O2SAT 99
[2024-10-23] MEDS ORDERED: AMOX-580 PO (23:47)
[2024-10-23] MEDS ORDERED: NAPR-56 PO (23:47)
--- NOTE | 2024-10-23 23:49 | Physician Documentation ---
HPI ~ General Chief Complaint: Tooth Problem Stated Complaint: TOOTH PAIN Time Seen by MD: 23:49 OK to notify your PCP?: Yes Primary Medical Doctor: [facility] Source: patient Mode of Arrival: POV Exam Limitations: no limitations History of Present Illness HPI Comment 34-year-old female presents with left lower jaw pain localized to her molar. There is some erythema around the base of the tooth. She was seen here couple of days ago and given a prescription for Augmentin and naproxen but her pharmacy was closed so she was unable to begin those. Tonight she is requesting a dose of medication and for to be sent to a different pharmacy. She denies any nausea, vomiting, diarrhea, constipation, shortness of breath or chest pain. She has a plan to see her dentist on Friday morning. Medication Reconciliation Allergies: Coded Allergies: levofloxacin (Verified Allergy, Intermediate, HIVES, 10/23/24) Scheduled Amox Tr/Potassium Clavulanate (Augmentin 875-125 Tablet), 1 TAB PO Q12H Amox Tr/Potassium Clavulanate 875/125 MG (Augmentin 875/125 MG), 1 TAB PO Q12H Esomeprazole Magnesium (Nexium), 1 CAP PO DAILY Famotidine (Pepcid), 1 TAB PO DAILY Fluticasone Propionate (Flonase), 2 SPRAYS BOTHNARES DAILY Ibuprofen (Ibuprofen), 1 TAB PO Q8H Naproxen (Naproxen), 1 TAB PO Q12H Naproxen (Naproxen), 1 TAB PO Q12H Nitrofurantoin Monohyd/M-Cryst (Macrobid 100 mg Capsule), 1 CAP PO Q12H Ondansetron Hcl (Zofran), 1 TAB PO Q8H Pantoprazole Sodium (PROTONIX tablet), 40 MG PO DAILY Pantoprazole Sodium (PROTONIX tablet), 40 MG PO DAILY Pantoprazole Sodium (PROTONIX tablet), 1 TAB PO DAILY Prochlorperazine Maleate* (Compazine*), 10 MG PO BID Pseudoephedrine HCl (Sudafed 12 Hour), 1 TAB PO Q12H Sucralfate (Carafate), 10 ML PO Q6H Scheduled PRN Ibuprofen (Ibuprofen), 1 TAB PO Q8H PRN for pain ONDANSETRON ODT 4mg tablet (Ondansetron Odt), 4 MG PO Q8HPRN PRN for nausea/vomiting ONDANSETRON ODT 4mg tablet (Ondansetron Odt), 1 TABLET PO Q6H PRN for nausea/vomiting ONDANSETRON ODT 4mg tablet (Ondansetron Odt), 4 MG PO Q4H PRN for nausea ONDANSETRON ODT 4mg tablet (Ondansetron Odt), 1 TAB PO Q6H PRN PRN for nausea/vomiting Ondansetron (Zofran Odt), 8 MG PO QID PRN for nausea/vomiting Ondansetron (Zofran Odt), 4 MG PO Q6H PRN for nausea/vomiting Ondansetron 8mg ODT (Ondansetron Odt), 1 TAB PO TID PRN for nausea/vomiting Ondansetron ODT* (Zofran ODT*), 4 MG PO Q6H PRN for nausea/vomiting, (Reported) Oxycodone Hcl/Acetaminophen 5/325 MG* (Percocet 5/325 MG*), 1-2 TAB PO Q6H PRN for pain, (Reported) Past Medical History Past Medical History: Cholelithiasis, Gastritis, Pancreatitis, Kidney Stones, UTI, Hyperthyroidism, Chronic Back Pain, Anxiety, Bipolar, Depression Past Surgical History: appendectomy, cholecystectomy, other Alcohol Use: Occasionally Drug Use: marijuana Lives with: S/O, Family Lives In: Home Occupation: employed Review of Systems All Other Systems at this time: Reviewed and Negative Physical Exam Vital Signs: RN Vital Signs have been reviewed: Yes, Temperature: 97.6, Source: Temporal, Heart Rate: 72, Respiratory Rate: 15, BP: 110/62, Pulse Oximetry: 99, Weight: 54.550 Pulse Oximetry Reflects: adequate oxygenation Physical Exam General: Alert, mild distress. HEENT: No injection, moist mucous membranes. Neck: Full range of motion. Respiratory: No respiratory distress, equal chest rise and fall. Chest: No accessory muscle use. Cardiovascular: Regular rate and rhythm. Gastrointestinal: Nondistended. Extremities: Normal range of motion, no deformity. Neurologic: Oriented x4. Psychiatric: Normal mood and affect. Skin: Normal color, warm and dry. Mouth/Throat: normal mouth inspection Palate: normal inspection Teeth/Gums: tender, gingiva redness Teeth/Gums tooth #18, no trismus. Progress Results/Orders Reviewed/noted all lab results: Yes Results/Orders Completed Orders - ALIYA MARIE Naproxen Tablet (Naprosyn Tablet) (10/23/24 23:50) Amox Tr/Potassium Clavulanate (Augmentin (10/23/24 23:50) Vital Signs 10/23/24 23:08 Temp 97.6 Pulse 72 Resp 15 B/P (MAP) 110/62 Pulse Ox 99 Medical Decision Making Additional info obtained from: old records Findings 34-year-old female presenting with dental pain to the number 18 tooth for the past couple days. On exam there is some gingival redness and tenderness at the base of this tooth. She was seen here a couple of days ago and was given a prescription for Augmentin and naproxen however was unable to obtain these from the pharmacy since it was close. We gave the 1st dose tonight while here in the department and sent these prescriptions to a pharmacy that will be open tomorrow for pickup. She has plans to see her dentist on Friday. Should return back here for any new or worsening symptoms. Differential Dx:Considerations: Include: Facial Cellulitis, Pulpitis, Tooth Fra cture, Trigeminal neuralgia, Tooth subluxation Departure Disposition: HOME / SELF CARE / HOMELESS Impression: Primary Impression: Dental abscess Condition: Stable Additional Instructions: Please take all antibiotics as prescribed. Follow up with her primary care provider in the next 3 days and work on an seen a dentist this week. Return back here for any new or worsening symptoms. Referrals: NO PRIMARY CARE PROVIDER (PCP) Prescriptions Naproxen (Naproxen) 500 Mg Tablet 1 TAB PO Q12H, #20 TAB Prov: ALIYA MARIE GEOSPATIAL TECHNICIAN 10/23/24 Amox Tr/Potassium Clavulanate 875/125 MG (Augmentin 875/125 MG) 875 Mg-125 Mg Tablet 1 TAB PO Q12H for 10 Days, #20 TAB Prov: ALIYA MARIE GEOSPATIAL TECHNICIAN 10/23/24 Education Educated: Patient Educated regarding: diagnosis, treatment, prognosis, need for follow up Additional Comment Medical Screen Exam This patient recieved a medical screening examination. After reviewing the individual's medical complaints with presenting symptoms and performing an appro priate physical examination, it was determined that no immediate life- threatening emergency medical condition is present. This individual is also not a women having contractions. Signature Scribe Signature: . Attestation: Scribed for Aliya Marie by Aliya Egan NP . 10/23/24 23:58 ALIYA MARIEP Oct 23, 2024 23:49
[2024-10-24] MEDS: amox tr/potassium clavulanate 875/125mg TAB PO ONE (00:09)
[2024-10-24] MEDS: naproxen 500mg tablet PO ONE (00:09)
== END 2024-10-24 00:10 | disposition home or self-care (01) ==
LOC: ER 22:52
DX: K04.7 Periapical abscess without sinus (principal); F31.9 Bipolar disorder, unspecified; F12.90 Cannabis use, unspecified, uncomplicated; Z88.1 Allergy status to other antibiotic agents; Z90.49 Acquired absence of other specified parts of digestive tract; Z79.899 Other long term (current) drug therapy; Z87.442 Personal history of urinary calculi; Z72.89 Other problems related to lifestyle
CPT/HCPCS: 99283

== ENCOUNTER 2024-10-28 00:09 | Emergency (ER) | payer MEDICAID ==
[~2024-10-28] VITALS: Ht 154.9 cm; Wt 59.4 kg
[~2024-10-28 00:09] MED LIST changes: +AMOX-580 PO
[2024-10-28 00:32] VITALS: BP 125/63; PULSE 66; RESP 16; TEMP 97.7; O2SAT 98
== END 2024-10-28 03:08 | disposition left against medical advice (07) ==
LOC: ER 00:10
DX: K08.89 Other specified disorders of teeth and supporting structures (principal); Z53.21 Procedure and treatment not carried out due to patient leaving prior to being seen by health care provider; Z88.1 Allergy status to other antibiotic agents

== ENCOUNTER 2024-11-23 15:19 | Emergency (ER) | payer MEDICAID ==
[~2024-11-23] VITALS: Ht 154.9 cm; Wt 54.5 kg
[~2024-11-23 15:19] MED LIST changes: -AMOX-117 PO; -AMOX-580 PO
[2024-11-23 15:23] VITALS: BP 134/90; PULSE 109; RESP 18; O2SAT 100
[2024-11-23] MEDS ORDERED: WITC1MED28 RC (16:28)
[2024-11-23] MEDS ORDERED: HYDR25SU7 RC (16:28)
--- NOTE | 2024-11-23 16:29 | Physician Documentation ---
History of Present Illness ~ Chief Complaint: Rectal Pain Stated Complaint: HEMORRHOIDS Time Seen by MD: 16:26 Primary Medical Doctor: [facility] This is a 34-year-old female who presents to the emergency department due to pain from a hemorrhoid. She reports that this has a somewhat chronic in her current issue for her. She denies any chills or fever, nausea vomiting, constipation. Reports that she has chronically somewhat loose stools. Medication Reconciliation Allergies: Coded Allergies: levofloxacin (Verified Allergy, Intermediate, HIVES, 10/23/24) Scheduled Esomeprazole Magnesium (Nexium), 1 CAP PO DAILY Famotidine (Pepcid), 1 TAB PO DAILY Fluticasone Propionate (Flonase), 2 SPRAYS BOTHNARES DAILY Hydrocortisone Acetate (Hydrocortisone Acetate), 1 SUPP RC Q12H Ibuprofen (Ibuprofen), 1 TAB PO Q8H Nitrofurantoin Monohyd/M-Cryst (Macrobid 100 mg Capsule), 1 CAP PO Q12H Ondansetron Hcl (Zofran), 1 TAB PO Q8H Pantoprazole Sodium (PROTONIX tablet), 40 MG PO DAILY Pantoprazole Sodium (PROTONIX tablet), 40 MG PO DAILY Pantoprazole Sodium (PROTONIX tablet), 1 TAB PO DAILY Prochlorperazine Maleate* (Compazine*), 10 MG PO BID Pseudoephedrine HCl (Sudafed 12 Hour), 1 TAB PO Q12H Sucralfate (Carafate), 10 ML PO Q6H Witch Lucie (Preparation H), 1 EA RC TID Scheduled PRN Ibuprofen (Ibuprofen), 1 TAB PO Q8H PRN for pain ONDANSETRON ODT 4mg tablet (Ondansetron Odt), 4 MG PO Q8HPRN PRN for nausea/vomiting ONDANSETRON ODT 4mg tablet (Ondansetron Odt), 1 TABLET PO Q6H PRN for nausea/vomiting ONDANSETRON ODT 4mg tablet (Ondansetron Odt), 4 MG PO Q4H PRN for nausea ONDANSETRON ODT 4mg tablet (Ondansetron Odt), 1 TAB PO Q6H PRN PRN for nausea/vomiting Ondansetron (Zofran Odt), 8 MG PO QID PRN for nausea/vomiting Ondansetron (Zofran Odt), 4 MG PO Q6H PRN for nausea/vomiting Ondansetron 8mg ODT (Ondansetron Odt), 1 TAB PO TID PRN for nausea/vomiting Ondansetron ODT* (Zofran ODT*), 4 MG PO Q6H PRN for nausea/vomiting, (Reported) Oxycodone Hcl/Acetaminophen 5/325 MG* (Percocet 5/325 MG*), 1-2 TAB PO Q6H PRN for pain, (Reported) Discontinued Medications Naproxen (Naproxen), 1 TAB PO Q12H Discontinued Reason: Auto Discontinued Naproxen (Naproxen), 1 TAB PO Q12H Discontinued Reason: Auto Discontinued Past Medical History Past Medical History: Cholelithiasis, Gastritis, Pancreatitis, Kidney Stones, UTI, Hyperthyroidism, Chronic Back Pain, Anxiety, Bipolar, Depression Past Surgical History: appendectomy, cholecystectomy, other Alcohol Use: Occasionally Drug Use: marijuana Lives with: S/O, Family Lives In: Home Occupation: employed Review of Systems ROS As stated above in the HPI, otherwise all systems are reviewed and negative. Physical Exam Vital Signs: Temperature: 97.1, Source: Temporal, Heart Rate: 109, Respiratory Rate: 18, BP: 134/90, Pulse Oximetry: 100, Weight: 54.550 Oxygen Flow Rate: 0 Physical Exam General: Alert, no apparent distress. Neck: Full range of motion. Respiratory: Lungs clear, no respiratory distress. Chest: No accessory muscle use. Cardiovascular: Regular rate and rhythm, no murmurs. Gastrointestinal: Soft, nontender, nondistended. Bowels sounds present. Rectal: External hemorrhoid, not thrombosed. Extremities: Normal range of motion, no deformity. Neurologic: Oriented x4. Psychiatric: Normal mood and affect. Skin: Normal color, warm and dry. No edema, no ecchymosis. Progress Results/Orders Results/Orders Vital Signs 11/23/24 15:23 Temp 97.1 Pulse 109 Resp 18 B/P (MAP) 134/90 Pulse Ox 100 O2 Flow Rate 0 Medical Decision Making Diff Dx Rectal:Considerations: Include: Fissure, Fistula, Foreign body, Imp action, Perirectal abscess, Rectal prolapse, Subcutaneous abscess, Thrombosed hemorrhoid, Ulcer Departure Time of Disposition: 16:27 Disposition: 01 HOME / SELF CARE / HOMELESS Impression: Primary Impression: Hemorrhoid Condition: Stable Discharge Instructions: Hemorrhoids Additional Instructions: Use the anucort suppositories twice daily until pain alleviated. Use the hemorrhoid wipes as needed three times daily. Referrals: NO PRIMARY CARE PROVIDER (PCP) Prescriptions Witch Lucie (Preparation H) 20 % Med..pad 1 EA RC TID for rectal pain for 10 Days, #30 EA Prov: MEGHAN BLACK NP 11/23/24 Hydrocortisone Acetate (Hydrocortisone Acetate) 25 Mg Supp.rect 1 SUPP RC Q12H for hemorrhoid pain for 14 Days, #28 SUPP 0 Refills Prov: MEGHAN BLACK NP 11/23/24 Education Educated: Patient Educated regarding: diagnosis, treatment, prognosis Signature Scribe Signature: x Attestation: The note accurately reflects work and decisions made by me.Meghan Egan NP 11/23/24 16:31 MEGHAN BLACK NP Nov 23, 2024 16:29
[2024-11-23 16:49] VITALS: TEMP 97.1
== END 2024-11-23 16:50 | disposition home or self-care (01) ==
LOC: ER 15:21
DX: K64.9 Unspecified hemorrhoids (principal); F31.9 Bipolar disorder, unspecified; F41.9 Anxiety disorder, unspecified; F12.90 Cannabis use, unspecified, uncomplicated; Z88.1 Allergy status to other antibiotic agents; Z90.49 Acquired absence of other specified parts of digestive tract; Z79.899 Other long term (current) drug therapy; Z87.442 Personal history of urinary calculi; Z72.89 Other problems related to lifestyle
CPT/HCPCS: 99282

== ENCOUNTER 2025-02-15 10:52 | Emergency (ER) | payer MEDICAID ==
[~2025-02-15] VITALS: Ht 167.6 cm; Wt 58.0 kg
[~2025-02-15 10:52] MED LIST changes: +HYDR25SU7 RC; -IBUP-1985 PO; +IBUP600T52 PO; -NAPR-56 PO; +WITC1MED28 RC
[2025-02-15 11:58] LABS: MEAN PLATELET VOLUME 8.1 FL (7.4-10.4); RED CELL DISTRIBUTION WIDTH 17.4 % (11.5-14.5)
[2025-02-15 12:12] LABS: CREATININE 0.89 MG/DL (0.40-0.90); TOTAL CARBON DIOXIDE 24.1 MMOL/L (24-32); eCRCL 82 ML/MIN; eGFR 73 ML/MIN
[2025-02-15 13:19] LABS: PLATELET ESTIMATE NORMAL
[2025-02-15 13:20] LABS: ELLIPTOCYTES FEW
[2025-02-15] MEDS: ketorolac trometh 15mg/ml vial 15 MG/ML ML IV STA (14:25)
[2025-02-15] MEDS: normal saline 1000ml 1,000 ML IV STA ×2 (14:28)
[2025-02-15] MEDS: OLANZapine **IM** 10 mg inj. IM STA (14:33)
--- NOTE | 2025-02-15 17:07 | Physician Documentation ---
History of Present Illness ~ Chief Complaint: Abdominal Pain w/vomiting Stated Complaint: ABD PAIN Time Seen by MD: 13:37 Primary Medical Doctor: [facility] Source: patient, family Mode of Arrival: EMS HPI Patient is seen today with complaints of history of cannabinoid hyperemesis syndrome. Patient states she significantly decrease the amount of marijuana she smokes over the last six years however she states she does still smoke marijuana. Patient states if she starts throwing up then she has a hard time stopping throwing up. Patient has no complaints of and denies any chest pain or shortness of breath or diarrhea. Patient does admit to some generalized abdominal discomfort mainly in the epigastric area. Patient denies any fever or chills or body aches. Medication Reconciliation Allergies: Coded Allergies: levofloxacin (Verified Allergy, Intermediate, HIVES, 02/15/25) Scheduled Esomeprazole Magnesium (Nexium), 1 CAP PO DAILY Famotidine (Pepcid), 1 TAB PO DAILY Fluticasone Propionate (Flonase), 2 SPRAYS BOTHNARES DAILY Hydrocortisone Acetate (Hydrocortisone Acetate), 1 SUPP RC Q12H Ibuprofen (Ibuprofen), 1 TAB PO Q8H Nitrofurantoin Monohyd/M-Cryst (Macrobid 100 mg Capsule), 1 CAP PO Q12H Ondansetron Hcl (Zofran), 1 TAB PO Q8H Pantoprazole Sodium (PROTONIX tablet), 40 MG PO DAILY Pantoprazole Sodium (PROTONIX tablet), 40 MG PO DAILY Pantoprazole Sodium (PROTONIX tablet), 1 TAB PO DAILY Prochlorperazine Maleate* (Compazine*), 10 MG PO BID Pseudoephedrine HCl (Sudafed 12 Hour), 1 TAB PO Q12H Sucralfate (Carafate), 10 ML PO Q6H Witch Lucie (Preparation H), 1 EA RC TID Scheduled PRN Ibuprofen (Ibuprofen), 1 TAB PO Q8H PRN for pain ONDANSETRON ODT 4mg tablet (Ondansetron Odt), 4 MG PO Q8HPRN PRN for nausea/vomiting ONDANSETRON ODT 4mg tablet (Ondansetron Odt), 1 TABLET PO Q6H PRN for naus ea/vomiting ONDANSETRON ODT 4mg tablet (Ondansetron Odt), 4 MG PO Q4H PRN for nausea ONDANSETRON ODT 4mg tablet (Ondansetron Odt), 1 TAB PO Q6H PRN PRN for nausea/vomiting Ondansetron (Zofran Odt), 8 MG PO QID PRN for nausea/vomiting Ondansetron (Zofran Odt), 4 MG PO Q6H PRN for nausea/vomiting Ondansetron 8mg ODT (Ondansetron Odt), 1 TAB PO TID PRN for nausea/vomiting Ondansetron ODT* (Zofran ODT*), 4 MG PO Q6H PRN for nausea/vomiting, (Reported) Oxycodone Hcl/Acetaminophen 5/325 MG* (Percocet 5/325 MG*), 1-2 TAB PO Q6H PRN for pain, (Reported) Past Medical History Past Medical History: Cholelithiasis, Gastritis, Pancreatitis, Kidney Stones, UTI, Hyperthyroidism, Chronic Back Pain, Anxiety, Bipolar, Depression Past Surgical History: appendectomy, cholecystectomy, other Alcohol Use: Occasionally Drug Use: marijuana Lives with: S/O, Family Lives In: Home Occupation: employed Review of Systems Constitutional: Denies: chills, fever, weakness Eyes: Denies: pain, blurred vision ENT: Denies: ear pain, nose pain, throat pain, mouth pain Respiratory: Denies: cough, shortness of breath Cardiovascular: Denies: chest pain, palpitations Gastrointestinal: Denies: abdominal pain, nausea, vomiting Genitourinary: Denies: burning, dysuria Female Genitalia: Denies: vaginal discharge, pelvic pain Neurological: Denies: headache, dizziness Musculoskeletal: Denies: pain, swelling Integumentary: Denies: rash, lesions Allergic/Immunologic: Denies: hives, itching Hematologic/Lymphatic: Denies: no symptoms reported Psychiatric: Denies: depression, anxiety Physical Exam Vital Signs: Temperature: 97.8, Heart Rate: 77, Respiratory Rate: 20, BP: 92/66, Pulse Oximetry: 100, Weight: 58.000 Oxygen Flow Rate: 0 Physical Exam General: Awake and Alert, no acute distress. HEENT: Conjunctiva pink, Sclera clear, Mucus Membranes moist. Neck: Supple without masses and tenderness. Resp: Unlabored. Lungs clear to auscultation bilaterally. Heart: Regular Rate and rhythm, normal S1 and S2 without murmur, rub or gallop. Abdomen: Patient has mild tenderness to palpation in the epigastric area with no guarding and no rebound and abdomen is soft and nondistended. Extremities: No cyanosis,clubbing or edema. Skin: Warm and Dry. Progress Results/Orders Results/Orders Completed Orders - NERISSA RODRIGUEZ PAC Normal Saline 1000ml (0.9% Sodium Chlori (02/15/25 14:09) Normal Saline 1000ml (0.9% Sodium Chlori (02/15/25 14:09) Olanzapine Im (Zyprexa I.M. Im On (02/15/25 14:09) Prochlorperazine Inj (Compazine Inj) (02/15/25 14:10) Ketorolac Trometh 15mg/Ml Vial (Toradol (02/15/25 14:09) Medications Received in ER Medications (Trade) Dose Ordered Sig/Beth Route PRN Reason Start Time Stop Time Status Last Admin Dose Admin Sodium Chloride 1,000 ml @ 1,000 mls/hr ONCE STAT IV 02/15/25 14:09 02/15/25 15:08 DC 02/15/25 14:28 1,000 MLS/HR Sodium Chloride 1,000 ml @ 1,000 mls/hr ONCE STAT IV 02/15/25 14:09 02/15/25 15:08 DC 02/15/25 14:28 1,000 MLS/HR (ZyPREXA I.M. IM ONLY) 10 mg ONCE STAT IM 02/15/25 14:09 02/15/25 14:13 DC 02/15/25 14:33 10 MG (Compazine inj) 10 mg ONCE ONCE IV 02/15/25 14:10 02/15/25 14:18 DC 02/15/25 14:24 10 MG (Toradol injection) 15 mg ONCE STAT IV 02/15/25 14:09 02/15/25 14:18 DC 02/15/25 14:25 15 MG Vital Signs 02/15/25 02/15/25 02/15/25 02/15/25 11:48 14:25 14:34 14:35 Temp 97.8 97.8 Pulse 90 61 Resp 18 20 14 B/P (MAP) 144/80 135/77 (96) Pulse Ox 98 99 O2 Flow Rate 0 0 02/15/25 02/15/25 15:21 15:33 Temp 97.8 Pulse 77 Resp 12 20 B/P (MAP) 92/66 (75) Pulse Ox 100 O2 Flow Rate 0 Laboratory Tests Test 02/15/25 11:28 White Blood Count 6.8 Red Blood Count 4.83 Hemoglobin 10.7 L Hematocrit 32.9 L Mean Corpuscular Volume 68.2 L Mean Corpuscular Hemoglobin 22.2 L Mean Corpuscular Hemoglobin Concent 32.6 L Red Cell Distribution Width 17.4 H Platelet Count 359 Mean Platelet Volume 8.1 Neutrophils (%) (Auto) 89.3 H Lymphocytes (%) (Auto) 5.9 L Monocytes (%) (Auto) 4.7 Eosinophils (%) (Auto) 0 Basophils (%) (Auto) 0.1 Neutrophils # (Auto) 6.0 Lymphocytes # (Auto) 0.4 L Monocytes # (Auto) 0.3 Eosinophils # (Auto) 0.0 Basophils # (Auto) 0.0 CBC Comment Platelet Estimate Normal Red Blood Cell Morphology Perf Hypochromasia 1+ Basophilic Stippling Anisocytosis 1+ Microcytosis 1+ Elliptocytes Few Sodium Level 140 Potassium Level 3.1 L Chloride Level 101 Carbon Dioxide Level 24.1 Anion Gap 15 Blood Urea Nitrogen 16 Creatinine 0.89 Estimated GFR/1.73 m2 73 BUN/Creatinine Ratio 18.0 Glucose Level 144 H Calcium Level 9.5 Total Bilirubin 0.7 Aspartate Amino Transf (AST/SGOT) 36 Alanine Aminotransferase (ALT/SGPT) 49 Alkaline Phosphatase 66 Total Protein 8.3 H Albumin 4.5 Globulin 3.8 Albumin/Globulin Ratio 1.2 Lipase 17 Chemistry Comments Medical Decision Making Findings Patient is seen today with complaints of history of cannabinoid hyperemesis syndrome. Patient states she significantly decrease the amount of marijuana she smokes over the last six years however she states she does still smoke marijuana. Patient states if she starts throwing up then she has a hard time stopping throwing up. Patient has no complaints of and denies any chest pain or shortness of breath or diarrhea. Patient does admit to some generalized abdominal discomfort mainly in the epigastric area. Patient denies any fever or chills or body aches. Patient will be given prescription for Zyprexa 10 mg one tab by mouth at night along with Zofran to be taken for nausea. Patient was given 2 L of normal saline IV in the ED today along with Zofran 10 mg IM, as well as Compazine 10 mg IV. Patient states he is feeling much better. Patient will discontinue smoking of any an all cannabis or any edibles. She will return to ED with any worsening, concerning or changing symptoms. Departure Disposition: 01 HOME / SELF CARE / HOMELESS Impression: Primary Impression: Vomiting Qualified Codes: R11.10 - Vomiting, unspecified Additional Impression: Cannabis hyperemesis syndrome concurrent with and due to cannabis abuse Condition: Stable Discharge Instructions: Cannabinoid Hyperemesis Syndrome Additional Instructions: Patient will be given prescription for Zyprexa 10 mg one tab by mouth at night along with Zofran to be taken for nausea. Patient was given 2 L of normal saline IV in the ED today along with Zofran 10 mg IM, as well as Compazine 10 mg IV. Patient states he is feeling much better. Patient will discontinue smoking of any an all cannabis or any edibles. She will return to ED with any worsening, concerning or changing symptoms. Referrals: NO PRIMARY CARE PROVIDER (PCP) Prescriptions ONDANSETRON ODT 4mg tablet (ONDANSETRON ODT) 4 Mg Tab.rapdis 4 MG PO BID for 7 Days, #14 TAB Prov: NERISSA RODRIGUEZ 02/15/25 Olanzapine (Olanzapine) 10 Mg Tablet 1 TAB PO HS for 10 Days, #10 TAB 0 Refills Prov: NERISSA RODRIGUEZ 02/15/25 Signature Scribe Signature: No scribe Attestation: No scribe NERISSA RODRIGUEZ Feb 15, 2025 17:07
[2025-02-15] MEDS ORDERED: ONDA-243 PO (17:11)
[2025-02-15] MEDS ORDERED: OLAN-38 PO (17:11)
[2025-02-15 17:40] VITALS: BP 134/80; PULSE 72; RESP 18; TEMP 97.8; O2SAT 100
== END 2025-02-15 17:43 | disposition home or self-care (01) ==
LOC: ER 10:53
DX: R11.10 Vomiting, unspecified (principal); F12.10 Cannabis abuse, uncomplicated; F17.200 Nicotine dependence, unspecified, uncomplicated; F31.9 Bipolar disorder, unspecified; F41.9 Anxiety disorder, unspecified; G89.29 Other chronic pain; Z87.19 Personal history of other diseases of the digestive system; Z87.440 Personal history of urinary (tract) infections; Z87.442 Personal history of urinary calculi; Z88.1 Allergy status to other antibiotic agents; Z90.49 Acquired absence of other specified parts of digestive tract; Z79.899 Other long term (current) drug therapy; Z72.89 Other problems related to lifestyle
CPT/HCPCS: 80053; 83690; 85008; 85025; 96361; 96372; 96374; 96375; 99284; J0780; J1885; J3490; J7030

== ENCOUNTER 2025-02-18 10:16 | Inpatient (IN) | payer MEDICAID ==
[~2025-02-18] VITALS: Ht 154.9 cm; Wt 56.0 kg
[~2025-02-18 10:16] MED LIST changes: +OLAN-38 PO
--- NOTE | 2025-02-18 10:42 | Physician Documentation ---
History of Present Illness ~ Chief Complaint: Vomiting w/diarrhea Stated Complaint: ABD PAIN Time Seen by MD: 14:19 Primary Medical Doctor: [facility] HPI 34-year-old female brought in by EMS for epigastric and right lower quadrant abdominal pain with nausea vomiting. Patient states she has been experiencing this intermittently for the past 7 years. Patient states she has 1 flare-up per year unable to hold down food or water. Dr. Fritz: This current event started Friday. She can not keep anything down since then. Patient has no old past medical history requiring regular medications and she is status post laparoscopic gallbladder and appendix removal and two C sections. She is allergic to Levaquin which called rash. Pain is 8/10. No other symptoms. Medication Reconciliation Allergies: Coded Allergies: levofloxacin (Verified Allergy, Intermediate, HIVES, 02/18/25) Scheduled Esomeprazole Magnesium (Nexium), 1 CAP PO DAILY Famotidine (Pepcid), 1 TAB PO DAILY Fluticasone Propionate (Flonase), 2 SPRAYS BOTHNARES DAILY Hydrocortisone Acetate (Hydrocortisone Acetate), 1 SUPP RC Q12H Ibuprofen (Ibuprofen), 1 TAB PO Q8H Nitrofurantoin Monohyd/M-Cryst (Macrobid 100 mg Capsule), 1 CAP PO Q12H ONDANSETRON ODT 4mg tablet (Ondansetron Odt), 4 MG PO BID Olanzapine (Olanzapine), 1 TAB PO HS Ondansetron Hcl (Zofran), 1 TAB PO Q8H Pantoprazole Sodium (PROTONIX tablet), 40 MG PO DAILY Pantoprazole Sodium (PROTONIX tablet), 40 MG PO DAILY Pantoprazole Sodium (PROTONIX tablet), 1 TAB PO DAILY Prochlorperazine Maleate* (Compazine*), 10 MG PO BID Pseudoephedrine HCl (Sudafed 12 Hour), 1 TAB PO Q12H Sucralfate (Carafate), 10 ML PO Q6H Witch Lucie (Preparation H), 1 EA RC TID Scheduled PRN Ibuprofen (Ibuprofen), 1 TAB PO Q8H PRN for pain ONDANSETRON ODT 4mg tablet (Ondansetron Odt), 4 MG PO Q8HPRN PRN for nausea/vomiting ONDANSETRON ODT 4mg tablet (Ondansetron Odt), 1 TABLET PO Q6H PRN for nausea/vomiting ONDANSETRON ODT 4mg tablet (Ondansetron Odt), 4 MG PO Q4H PRN for nausea ONDANSETRON ODT 4mg tablet (Ondansetron Odt), 1 TAB PO Q6H PRN PRN for nausea/vomiting Ondansetron (Zofran Odt), 8 MG PO QID PRN for nausea/vomiting Ondansetron (Zofran Odt), 4 MG PO Q6H PRN for nausea/vomiting Ondansetron 8mg ODT (Ondansetron Odt), 1 TAB PO TID PRN for nausea/vomiting Ondansetron ODT* (Zofran ODT*), 4 MG PO Q6H PRN for nausea/vomiting, (Reported) Oxycodone Hcl/Acetaminophen 5/325 MG* (Percocet 5/325 MG*), 1-2 TAB PO Q6H PRN for pain, (Reported) Past Medical History Past Medical History: Cholelithiasis, Gastritis, Pancreatitis, Kidney Stones, UTI, Hyperthyroidism, Chronic Back Pain, Anxiety, Bipolar, Depression Past Surgical History: appendectomy, cholecystectomy, other Alcohol Use: Occasionally Drug Use: marijuana Lives with: S/O, Family Lives In: Home Occupation: employed Review of Systems ROS As stated above in the HPI, otherwise all systems are reviewed and negative. Physical Exam Vital Signs: Temperature: 98.7, Source: Temporal, Heart Rate: 99, Respiratory Rate: 18, BP: 121/88, Pulse Oximetry: 96, Weight: 56.000 Oxygen Flow Rate: 0 Physical Exam General: Alert, mild distress noted HEENT: moist mucous membranes. Neck: Full range of motion. Respiratory: No respiratory distress speaking in full sentences Chest: No accessory muscle use. Cardiovascular: Appears well perfused Neurologic: Oriented x4. Psychiatric: Normal mood and affect. Skin: Normal color, warm and dry. No edema, no ecchymosis. Abdominal examination: Progress Results/Orders Results/Orders Orders - DEV FRITZ MD Hcg, Ur Ql (02/18/25 14:23) Urinalysis, Cult If Indicated (02/18/25 14:23) Ct Abdomen Pelvis (02/18/25 15:46) Normal Saline 1000ml (0.9% Sodium Chlori (02/18/25 14:25) Dextrose 5%-Water (... W/Potassium Cl In (02/18/25 15:15) Dextrose 5%-Water (... W/Potassium Cl In (02/18/25 15:15) Completed Orders - DEV FRITZ MD Cbc/Diff (02/18/25 14:23) Lipase (02/18/25 14:23) Hcg Serum Ql (02/18/25 14:23) Ct Abdomen Pelvis (02/18/25 15:46) BMP (02/18/25 14:23) Morphine 4mg/Ml Inj. (Morphine Inj.) (02/18/25 14:25) Metoclopramide Inj (Reglan Inj) (02/18/25 14:25) Diphenhydramine Inj (Benadryl Inj.) (02/18/25 14:25) Morphine 4mg/Ml Inj. (Morphine Inj.) (02/18/25 15:20) Iohexol 300mg/Ml 100ml Inj. (Omnipaque-3 (02/18/25 15:21) Medications Received in ER Medications (Trade) Dose Ordered Sig/Beth Route PRN Reason Start Time Stop Time Status Last Admin Dose Admin (Reglan inj) 10 mg ONCE ONCE IV 02/18/25 14:25 02/18/25 14:41 DC 02/18/25 15:08 10 MG (Benadryl inj.) 25 mg ONCE ONCE IV 02/18/25 14:25 02/18/25 14:26 DC 02/18/25 15:08 25 MG Sodium Chloride 1,000 ml @ 200 mls/hr Q5H IV 02/18/25 14:25 02/18/25 15:23 200 MLS/HR Potassium Chloride 20 meq/ Dextrose 1,000 ml @ 100 mls/hr Q10H ONCE IV 02/18/25 15:15 02/19/25 01:14 02/18/25 16:08 100 MLS/HR (morphine inj.) 4 mg ONCE ONCE IV 02/18/25 15:20 02/18/25 15:21 DC 02/18/25 15:23 4 MG Vital Signs 02/18/25 02/18/25 10:34 15:23 Temp 98.7 Pulse 99 Resp 18 16 B/P (MAP) 121/88 Pulse Ox 96 O2 Flow Rate 0 Laboratory Tests Test 02/18/25 14:32 White Blood Count 5.5 Red Blood Count 5.10 Hemoglobin 11.5 L Hematocrit 34.9 L Mean Corpuscular Volume 68.4 L Mean Corpuscular Hemoglobin 22.5 L Mean Corpuscular Hemoglobin Concent 32.8 L Red Cell Distribution Width 17.0 H Platelet Count 351 Mean Platelet Volume 7.4 Neutrophils (%) (Auto) 53.3 Lymphocytes (%) (Auto) 34.0 Monocytes (%) (Auto) 12.1 H Eosinophils (%) (Auto) 0.2 Basophils (%) (Auto) 0.4 Neutrophils # (Auto) 2.9 Lymphocytes # (Auto) 1.9 Monocytes # (Auto) 0.7 Eosinophils # (Auto) 0.0 Basophils # (Auto) 0.0 CBC Comment Platelet Estimate Normal Red Blood Cell Morphology Perf Polychromasia Few Poikilocytosis 1+ Basophilic Stippling Microcytosis 1+ Sodium Level 140 Potassium Level 2.4 *L Chloride Level 98 L Carbon Dioxide Level 32.3 H Anion Gap 10 Blood Urea Nitrogen 9 Creatinine 0.57 Estimated GFR/1.73 m2 > 90 BUN/Creatinine Ratio 15.8 Glucose Level 92 Calcium Level 9.1 Albumin 4.3 Lipase 28 Human Chorionic Gonadotropin, Qual Negative Chemistry Comments Medical Decision Making Findings ER Course/Med. Decision Making REVIEW of RECORD(S): Previous medical records here and/or external medical records, such as that provided directly by the patient, by EMS and/or outside medical facilities, if available, were reviewed. COMORBIDITIES MDM During the physical examination, the findings suggestive of acute life- threatening condition such as JVD, tracheal deviation, acidotic breathing, noisy stridorous breath sounds, pulses paradoxus, muffled heart sounds, unequal breath sounds, abdominal rigidity and rebound tenderness, focal neurological deficits, cool clammy skin, severe hypotension, severe tachycardia or bradycardia are absent. Patient presenting for . Vital signs reviewed. Patient is hemodynamically stable and does not meet SIRS criteria. Patient appears nontoxic on exam. A DIFFERENTIAL DIAGNOSIS associated with the patients presentation includes: TREATMENT/DISPOSITION: The patient's presentation is most consistent with nonspecific abdominal pain and intractable nausea vomiting with a hypokalemia Prior to discharge I independently reviewed the patients past medical history, clinical risk factors, comorbidities, and social determinants of health and diagnostic studies. The patient appears to be a safe discharge home with close outpatient PCP follow-up I had extensive discussion with patient regarding management, disposition and follow up. Potential symptom etiology was discussed, and shared decision making occurred. They will return immediately if symptoms worsen, do not improve, or they have any further concerns. Prior to discharge all questions were addressed. The patient is aware that the purpose of this visit was to screen for an acute medical emergency requiring emergent stabilization. Chronic and occult conditions, including malignancies, have not been ruled out. If patient is unable to arrange follow-up as stated in the discharge instructions and further discussed with the patient directly, or their symptoms worsen/become more concerning, they are to return to the ER for reassessment immediately. Prior to leaving the department, the patient has a plan for discharge, has decision making capacity, and acknowledges an understanding of the verbal and written discharge instructions. SOCIAL DETERMINANTS: Patient demonstrates no obvious challenges to following up as an outpatient although did consider whether patient had any barriers to access care including homelessness, Food insecurity, Mental health, Substance abuse, Disabilities, Limited access to medical care, Difficulty finding transport, Insurance issues, Refusal of care or testing due to cost concerns. MEDICAL SCREENING: I have discussed with the patient the non-definitive nature of the emergency screening exam, diagnosis and the possibility of a variety of conditions which may present in atypically benign fashion and stressed the importance of close follow-up for definitive diagnosis and treatment. We discussed signs and symptoms that should be watched for which might indicate a more serious or new condition that would benefit from emergency reevaluation and the patient has verbalized understanding to this and my other detailed discharge instructions and promises compliance. I have referred him back to his primary physician of course for a more detailed evaluation and more definitive diagnoses. DISCLAIMER: Inadvertent spelling and grammatical errors are likely due to EMR/dictation software use and do not reflect on the overall quality of patient care. Note that the electronic time recorded on this note does not necessarily reflect the actual time of the patient encounter. Departure Disposition: 09 ADMITTED INPATIENT Impression: Primary Impression: Intractable Nausea of Vomiting Additional Impressions: Nonspecific abdominal pain Hypokalemia Condition: Fair Referrals: NO PRIMARY CARE PROVIDER (PCP) CELINE RADER NP Feb 18, 2025 10:42 DEV FRITZ MD Feb 18, 2025 14:28
[2025-02-18 14:46] LABS: MEAN PLATELET VOLUME 7.4 FL (7.4-10.4); RED CELL DISTRIBUTION WIDTH 17.0 % (11.5-14.5)
[2025-02-18 14:55] LABS: HCG SERUM QL NEGATIVE
[2025-02-18 15:02] LABS: CREATININE 0.57 MG/DL (0.40-0.90); TOTAL CARBON DIOXIDE 32.3 MMOL/L (24-32); eCRCL 105 ML/MIN; eGFR > 90 ML/MIN
[2025-02-18] MEDS: metoclopramide 5 mg/ml inj IV ONE (15:08)
[2025-02-18] MEDS: morphine 4 MG/ML inj SYRINge IV ONE ×3 (15:10→17:03)
[2025-02-18] MEDS ORDERED: Potassium Cl inj 20 MEQ in dextrose 5%-water 990 ML IV ONE (15:15)
[2025-02-18] MEDS ORDERED: iohexol 300mg/ml 100ml inj. ONE (15:21)
[2025-02-18] MEDS: normal saline 1000ml 1,000 ML IV SCH ×2 (15:23→19:06)
[2025-02-18 15:35] LABS: PLATELET ESTIMATE NORMAL
--- NOTE | 2025-02-18 16:05 | RADIOLOGY REPORT ---
Exam: CT CT ABDOMEN PELVIS W/ IV CONTRAST History: ABD PAIN COMPARISON: CT ABDOMEN PELVIS on DOS: 10/01/22 Technique: Multidetector spiral CT of the abdomen and pelvis was performed from lung bases to pubic symphysis. Intravenous contrast was administered during this examination. Portal venous imaging was obtained. Axial, coronal and sagittal multiplanar reformats were performed by the technologist on a separate workstation. Radiation Dose : 1. Abdomen/Pelvis: CTDIvol 9.48 mGy, DLP 145.16 mGy*cm. CONTRAST: Type of contrast: Omnipaque 300 Contrast injected: 100 ml Findings: Lung Bases: No acute or significant lung base finding. Normal heart size. No pleural or pericardial effusion. Liver: The liver is normal in size. No focal lesions. Normal hepatic vascular enhancement. Gallbladder and biliary Tree: Gallbladder is surgically absent. Spleen: Unremarkable Pancreas: The pancreas is normal in appearance without focal lesions or abnormal enhancement. Adrenal Glands: Unremarkable Kidneys: No hydronephrosis. Bladder: Unremarkable Bowel: The stomach is grossly normal in appearance. Small bowel and colon are normal in caliber and distribution. The appendix is not visualized; however, no secondary findings of acute appendicitis identified. Probable appendectomy. Small hiatal hernia. Ascites: Absent Lymphadenopathy: No mesenteric, retroperitoneal or periportal lymphadenopathy. Abdominal wall and Mesentery: Unremarkable. Vasculature: The visualized abdominal aorta is normal in size and caliber. Abdominal and pelvic vessels demonstrate normal enhancement. Pelvic Organs: Unremarkable Musculoskeletal: No aggressive focal bony lesions, acute fractures or dislocation. IMPRESSION: No acute abdominal or pelvic finding. Radiation optimization: All CT scans at this facility use at least one of these dose optimization techniques: automated exposure control mA and/or kV adjustment per patient size (includes targeted exams where dose is matched to clinical indication) or iterative reconstruction.
[2025-02-18] MEDS: Potassium Cl inj 20 MEQ in dextrose 5%-water 990 ML IV ONE (16:08)
[2025-02-18] MEDS: dexamethasone 4mg/ml inj IV ONE (17:03)
[2025-02-18] MEDS: Potassium Cl inj 20 MEQ in dextrose 5%-water 990 ML IV SCH (17:23)
[2025-02-18] MEDS ORDERED: magnesium sulf-water 4G/100mL 100 ML IV PRN (17:55)
[2025-02-18] MEDS ORDERED: HYDROcodone/acetaminophen 10/325mg tab PO PRN (17:55)
[2025-02-18] MEDS ORDERED: magnesium hydroxide 30ml (MOM) UD suspension PO PRN (17:55)
[2025-02-18] MEDS ORDERED: mag hydrox/Alum hydrox/simeth 30ml oral suspension PO PRN (17:55)
[2025-02-18] MEDS ORDERED: magnesium sulf-water 2g/50mL 50 ML IV PRN (17:55)
[2025-02-18] MEDS ORDERED: magnesium Cl slow-release 64mg tablet PO PRN (17:55)
--- NOTE | 2025-02-18 18:11 | HISTORY AND PHYSICAL-Residence ---
History & Physical Providers to CC Resident Creating Document: NABILIVORY SHIPLEY RES ~ History of Present Illness Primary Medical Doctor: [facility] Reason for Admit\Complaint: NAUSEA VOMITING, ABDOMINAL PAIN History of Present Illness 34 year old female has come to the ED with chief complaints of nausea, vomiting and abdominal pain that started on Friday. Patient reports that she has been having abdominal pain since Friday, cramping type, present throughout her abdomen but more prominently in the epigastric region, not radiating, no aggravating and relieving factors. Pain abdomen is associated with vomiting, and diarrhea. She is mainly vomiting yellow bile and water. Patient reports that she has been throwing up everything that she is trying to eat and is not able to hold anything down in her stomach. She reports having 1-2 episodes of watery diarrhea, no blood seen. Patient reports that she has been having these episodes of vomiting since the last 7 years, at least 1-2 times per year. She denies consuming any unusual food, recent travel, contact with sick people, recent hospitalization or recent antibiotic usage. Allergies: Coded Allergies: levofloxacin (Verified Allergy, Intermediate, HIVES, 02/18/25) Home Medications Home Medications Active Ondansetron Odt (Ondansetron HCl) 4 Mg Tab.rapdis 4 Mg PO BID 7 Days Olanzapine 10 Mg Tablet 1 Tab PO HS 10 Days Preparation H (Witch Lucie) 20 % Med..pad 1 Ea RC TID 10 Days Hydrocortisone Acetate 25 Mg Supp.rect 1 Supp RC Q12H 14 Days Ondansetron Odt (Ondansetron HCl) 4 Mg Tab.rapdis 1 Tab PO Q6H PRN PRN 4 Days Flonase (Fluticasone Propionate) 16 Gm [place].susp 2 Sprays BOTHNARES DAILY 30 Days Sudafed 12 Hour (Pseudoephedrine HCl) 120 Mg Tablet.er 1 Tab PO Q12H 10 Days Ondansetron Odt (Ondansetron HCl) 4 Mg Tab.rapdis 4 Mg PO Q4H PRN Ondansetron Odt (Ondansetron HCl) 8 Mg Tab.rapdis 1 Tab PO TID PRN PROTONIX tablet (Pantoprazole Sodium) 40 Mg Tablet.dr 1 Tab PO DAILY 30 Days Ondansetron Odt (Ondansetron HCl) 4 Mg Tab.rapdis 1 Tablet PO Q6H PRN Ibuprofen 800 Mg Tablet 1 Tab PO Q8H 5 Days Zofran Odt (Ondansetron) 8 Mg Tab.rapdis 4 Mg PO Q6H PRN PROTONIX tablet (Pantoprazole Sodium) 40 Mg Tablet.dr 40 Mg PO DAILY PROTONIX tablet (Pantoprazole Sodium) 40 Mg Tablet.dr 40 Mg PO DAILY Ibuprofen 600 Mg Tablet 1 Tab PO Q8H PRN Macrobid 100 mg Capsule (Nitrofurantoin Monohyd/M-Cryst) 100 Mg Capsule 1 Cap PO Q12H 10 Days Zofran Odt (Ondansetron) 8 Mg Tab.rapdis 8 Mg PO QID PRN Carafate (Sucralfate) 1 Gm/10 Ml Oral.susp 10 Ml PO Q6H 30 Days Nexium (Esomeprazole Magnesium) 20 Mg Capsule.dr 1 Cap PO DAILY Pepcid (Famotidine) 20 Mg Tablet 1 Tab PO DAILY Ondansetron Odt (Ondansetron HCl) 4 Mg Tab.rapdis 4 Mg PO Q8HPRN PRN Zofran (Ondansetron Hcl) 4 Mg Tablet 1 Tab PO Q8H Compazine* (Prochlorperazine) 10 Mg Tablet 10 Mg PO BID Reported Zofran ODT* (Ondansetron HCl) 4 Mg Tab.rapdis 4 Mg PO Q6H PRN Percocet 5/325 MG* (Oxycodone/Acetaminophen) 5 Mg/325 Mg Tablet 1-2 Tab PO Q6H PRN Past Medical History Past Medical History No significant past medical history. Past Surgical History Surgical History Comment Appendectomy Cholecystectomy Colonoscopy done years back. Not sure of the reason. Past Social History Social History Comment Patient does not smoke Patient drinks alcohol socially No illicit drug use Lives at home with her partner and 3 children [employer] Smoking: Non-Smoker Alcohol Use: Occasionally Drug Use: Marijuana Lives with: S/O, Family Lives In: Home Occupation: employed ROS ROS Constitutional: No symptoms reported Eyes: No pain, erythema, discharge, blurring of vision ENT: No sore throat, epistaxis, tinnitus Cardiovascular:No chest pain, palpitations, syncope, lower extremity edema, paroxysmal nocturnal dyspnea Respiratory: No Shortness of breath and cough, No hemoptysis. Musculoskeletal: No Swelling, pain in bilateral lower legs. Integumentary: No change in skin, hair, nails. No swelling, bruising, abrasions Neurologic: No weakness,No headache, neck pain, numbness or tingling of the extremities, Psychiatric: No delusions, depression, loss of interest in normal activity or change in sleep pattern, hallucinations, suicidal ideations Endocrine: No fatigue, no weakness. polydipsia, polyuria, change in appetite, heat or cold intolerance, sweating, dry skin Genitourinary: No symptoms reported Hematological: No bleeding, petechiae, bruising Allergies: No asthma or urticaria Gastrointestinal: Reports: nausea, vomiting, abdominal pain Exam Vitals: Vital Signs Date Time Temp Pulse Resp B/P (MAP) Pulse Ox O2 Delivery O2 Flow Rate FiO2 02/18/25 17:03 16 02/18/25 15:30 02/18/25 13:30 84 98 0 02/18/25 10:34 98.7 General: Awake , patient was feeling weak, and oriented x4, resting in the bed, in no acute distress HEENT: Atraumatic, normocephalic, EOMI, anicteric sclera ; pink conjunctiva Neck: Trachea midline. Supple, full range of motion, no JVD Cardiac: Regular rhythm, regular rate with no murmurs all over the precordium. Respiratory: Equal breath sounds bilaterally, no tachypnea, no wheezing ,rub or rales, Chest wall is symmetric and without deformity. Gastrointestinal: Abdomen symmetric, non-distended, soft, tenderness present all over the abdomen, normal bowel sounds x4 quadrant, normoactive, no hepatosplenomegaly Musculoskeletal: No pedal edema, no cyanosis Neurological: Speech is clear, alert, and oriented x 4. No motor or sensory deficit, deep tendon reflexes normal, cerebellar intact. Cranial nerves II-XII intact. Skin: Warm and dry Diagnostic Data Last Recorded Lab Results: 02/18/25 1432 02/18/25 1432 Additional Plan Abdominal pain Nausea/vomiting, diarrhea Viral vs bacterial Vitals stable WBC-5.5 CT abdomen- no abnormality seen. Procal,lactic acid ordered follow-up. Stool ova parasites, stool culture for enteric pathogens, stool WBC ordered. Follow-up Patient on Zofran and metoclopramide for nausea and vomiting. Hypokalemia- K- 2.4 Patient on potassium replacement. Microcytic anemia- Hb- 11.5, MCV-68.4 Follow-up with iron panel. Dehydration- Vitals stable Patient has clinical signs of dehydration like dry tongue, mucous membranes Patient currently on fluids NS 100 cc/hour. We will continue to monitor her. Code status: Full code DVT prophylaxis: SubQ heparin Pain management: [place] Diet/nutrition: Regular diet Prognosis: Guarded Ivory Kauffman PGY-1 Date of Service: Feb 18, 2025 Billing Provider: PATRICIA FOUNTAIN MD Common Visit Codes: 20116-[id number] INP/OBS CARE (HIGH) Secondary Visit Codes: 52121-[id number] CARE PLAN 30 MINUTES IVORY KAUFFMAN, RES Feb 18, 2025 18:11 PATRICIA FOUNTAIN MD Feb 20, 2025 08:28
[2025-02-18 18:46] LABS: PHOSPHORUS 3.2 MG/DL (2.3-4.5)
[2025-02-18 19:05] LABS: % IRON SATURATION 5 % (11-46)
[2025-02-18 19:19] LABS: LEUKOCYTE ESTERASE ,URINE NEGATIVE (Neg); NITRITES, URINE NEGATIVE (Neg); OCCULT BLOOD,URINE SMALL (Neg)
[2025-02-18 19:20] LABS: URINE HCG NEGATIVE (NEG)
[2025-02-18 19:28] LABS: UA COLLECTION TYPE NON-SPECIFIED
[2025-02-18 19:30] LABS: SQUAMOUS EPITHELIAL CELL,UR FEW /LPF (FEW)
[2025-02-18 19:45] LABS: URINE AMPHETAMINE SCREEN NEGATIVE (Neg); URINE BARBITUATE SCREEN NEGATIVE (Neg); URINE BENZODIAZEPINES SCREEN NEGATIVE (Neg); URINE CANNABINOID SCREEN POSITIVE (Neg); URINE COCAINE SCREEN NEGATIVE (Neg); URINE METHADONE SCREEN NEGATIVE (Neg); URINE OPIATE SCREEN POSITIVE (Neg); URINE PHENCYCLIDINE SCREEN NEGATIVE (Neg)
[2025-02-18] MEDS: heparin, porcine 5000 units/ml vial SQ SCH (20:00)
[2025-02-18] MEDS: K and/or MAG REPLACEMENT MC SCH (20:00)
[2025-02-18] MEDS: docusate sod 100mg capsule PO SCH (20:00)
[2025-02-18 20:30] VITALS: BP 144/93; PULSE 74; RESP 16; TEMP 98.8; O2SAT 98
[2025-02-18] MEDS: ondansetron/PF 4mg/2ml inj IV PRN (20:54)
[2025-02-18] MEDS ORDERED: morphine 4 MG/ML inj SYRINge IV PRN (20:55)
[2025-02-18] MEDS: morphine 4 MG/ML inj SYRINge IV PRN (21:00)
[2025-02-18 22:00] VITALS: BP 155/85; PULSE 51; RESP 16; TEMP 98.5; O2SAT 98
[2025-02-18] MEDS: metoclopramide 5 mg/ml inj IV PRN (23:41)
[2025-02-18] MEDS: POTASSIUM Cl 20eq-D5W 1000mL 1,000 ML IV ONE (23:41)
[2025-02-19 05:00] VITALS: BP 191/109; PULSE 77; RESP 20; TEMP 98.3; O2SAT 100
[2025-02-19 06:25] LABS: CHOL/HDL RATIO 3.8 (0.00-4.99); CREATININE 0.41 MG/DL (0.40-0.90); LDL CHOLESTEROL 78 MG/DL (50-100); TOTAL CARBON DIOXIDE 28.6 MMOL/L (24-32); eCRCL 146 ML/MIN; eGFR > 90 ML/MIN
[2025-02-19] MEDS: potassium Cl 20 mEq SR tablet PO PRN (06:52)
[2025-02-19 08:00] VITALS: RESP 15; O2SAT 98
[2025-02-19 08:30] LABS: MEAN PLATELET VOLUME 8.3 FL (7.4-10.4); RED CELL DISTRIBUTION WIDTH 16.8 % (11.5-14.5)
[2025-02-19] MEDS: potassium Cl 20mEq in NS 1,000 ML IV SCH (09:10)
[2025-02-19 11:09] LABS: PLATELET ESTIMATE NORMAL
[2025-02-19 11:11] VITALS: BP 138/80; PULSE 64; RESP 16; TEMP 95.5; O2SAT 98
[2025-02-19 11:11] LABS: ELLIPTOCYTES FEW
--- NOTE | 2025-02-19 16:05 | PROGRESS NOTE- Residence ---
Progress Note - Resident Providers to CC Resident Creating Document: IVORY KAUFFMAN, RES ~ Antibiotic Timeout Antibiotic Ordered?: No Subjective Patient was seen and examined at the bedside today. Patient was complaining of severe abdominal pain, was given pain medication and was finally relieved. No acute events recorded overnight. Objective Vital Signs Date Time Temp Pulse Resp B/P (MAP) Pulse Ox O2 Delivery O2 Flow Rate FiO2 02/19/25 14:38 16 02/19/25 11:11 95.5 64 138/80 (99) 98 02/19/25 05:00 Room Air 02/18/25 19:30 0 Result Diagram: 02/19/2552702/19/25527 Awake , and oriented x4, resting in the bed, patient was complaining of abdominal pain HEENT: Atraumatic, normocephalic, EOMI, anicteric sclera ; pink conjunctiva Neck: Trachea midline. Supple, full range of motion, no JVD Cardiac: Regular rhythm, regular rate with no murmurs all over the precordium. Respiratory: Equal breath sounds bilaterally, no tachypnea, no wheezing ,rub or rales, Chest wall is symmetric and without deformity. Gastrointestinal: Abdomen symmetric, non-distended, soft, tenderness present all over the abdomen, normal bowel sounds x4 quadrant, normoactive, no hepatosplenomegaly Musculoskeletal: No pedal edema, no cyanosis Neurological: Speech is clear, alert, and oriented x 4. No motor or sensory deficit, deep tendon reflexes normal, cerebellar intact. Cranial nerves II-XII intact. Skin: Warm and dry Plan Plan Abdominal pain Nausea/vomiting, diarrhea Viral vs bacterial Vitals stable WBC-4.1 CT abdomen- no abnormality seen. Procalcitonin normal, lactic acid normal Stool ova parasites, stool culture for enteric pathogens, stool WBC ordered. Follow-up Patient on Zofran and metoclopramide for nausea and vomiting. GI consulted for possible endoscopy. Patient on Protonix 40 mg daily. NPO after midnight. Hypokalemia- K- 2.8 Patient on potassium replacement. Microcytic anemia- Hb- 11.5, MCV-68.4 Serum iron low, serum ferritin normal, TIBC high Most likely due to iron-deficiency anemia Dehydration- Vitals stable Patient has clinical signs of dehydration like dry tongue, mucous membranes Patient currently on fluids NS 100 cc/hour. We will continue to monitor her. Code status: Full code DVT prophylaxis: SubQ heparin Pain management: [place] Diet/nutrition: NPO Prognosis: Guarded Ivory Kauffman PGY-1 Date of Service: Feb 19, 2025 Billing Provider: PATRICIA FOUNTAIN MD Common Visit Codes: [id number] INP/OBS CARE(HIGH) IVORY KAUFFMAN, RES Feb 19, 2025 16:05 PATRICIA FOUNTAIN MD Feb 20, 2025 08:29
[2025-02-19 18:00] VITALS: BP 128/79; PULSE 88; RESP 18; TEMP 98.2; O2SAT 97
[2025-02-19 20:00] VITALS: RESP 18; O2SAT 96
[2025-02-19] MEDS: potassium Cl 40MEQ/1/2NS 520ml 520 ML IV PRN (21:43)
[2025-02-19 22:00] VITALS: BP 136/84; PULSE 84; RESP 18; TEMP 97.9; O2SAT 99
[2025-02-20] VITALS (8 sets, daily range): BP systolic 108–127; BP diastolic 71–89; PULSE 58–74; RESP 14–17; TEMP 97.6–98; O2SAT 95–100
[2025-02-20 06:40] LABS: MEAN PLATELET VOLUME 8.1 FL (7.4-10.4); RED CELL DISTRIBUTION WIDTH 16.5 % (11.5-14.5)
[2025-02-20 07:25] LABS: CREATININE 0.43 MG/DL (0.40-0.90); TOTAL CARBON DIOXIDE 29.0 MMOL/L (24-32); eCRCL 139 ML/MIN; eGFR > 90 ML/MIN
[2025-02-20] MEDS ORDERED: LIDOcaine 2% Viscous 15ml cup ONE (09:11)
[2025-02-20] MEDS ORDERED: MIDAZolam 1 MG/ML 5ML VIAL ONE (10:51)
[2025-02-20] MEDS ORDERED: fentaNYL/PF 50MCG/1 ML 2ML syringe ONE (10:51)
[2025-02-20] MEDS ORDERED: PANT-47 PO (12:27)
[2025-02-20] MEDS ORDERED: ONDA-243 PO (12:27)
--- NOTE | 2025-02-20 16:20 | DISCHARGE SUMMARY-Residence ---
Discharge Summary Providers to Resident Creating Document: IVORY DONATO RES ~ Discharge Summary Admission Diagnosis: N/V Diarrhea Hospital Course DATE OF ADMISSION: 02/18/25 DATE OF DISCHARGE: 02/20/25 Imaging- -CT abdomen pelvis- Lung Bases: No acute or significant lung base finding. Normal heart size. No pleural or pericardial effusion. Liver: The liver is normal in size. No focal lesions. Normal hepatic vascular enhancement. Gallbladder and biliary Tree: Gallbladder is surgically absent. Spleen: Unremarkable Pancreas: The pancreas is normal in appearance without focal lesions or abnormal enhancement. Adrenal Glands: Unremarkable Kidneys: No hydronephrosis. Bladder: Unremarkable Bowel: The stomach is grossly normal in appearance. Small bowel and colon are normal in caliber and distribution. The appendix is not visualized; however, no secondary findings of acute appendicitis identified. Probable appendectomy. Small hiatal hernia. Ascites: Absent Lymphadenopathy: No mesenteric, retroperitoneal or periportal lymphadenopathy. Abdominal wall and Mesentery: Unremarkable. Vasculature: The visualized abdominal aorta is normal in size and caliber. Abdominal and pelvic vessels demonstrate normal enhancement. Pelvic Organs: Unremarkable Musculoskeletal: No aggressive focal bony lesions, acute fractures or dislocation. Discharge Diagnosis\Comment: Abdominal pain Nausea vomiting Diarrhea Dehydration Microcytic anemia Reflux esophagitis Hypokalemia Operations\Procedures: Upper GI endoscopy Consultants: GI Complications: None Condition on DC: Stable Discharge Summary: 34 year old female came to the ED with chief complaints of nausea, vomiting and abdominal pain that started on Friday. Patient reports that she has been having abdominal pain since Friday, cramping type, present throughout her abdomen but more prominently in the epigastric region, not radiating, no aggravating and relieving factors. Pain abdomen is associated with vomiting, and diarrhea. She is mainly vomiting yellow bile and water. Patient reports that she has been throwing up everything that she is trying to eat and is not able to hold anything down in her stomach. She reports having 1-2 episodes of watery diarrhea, no blood seen. Patient reports that she has been having these episodes of vomiting since the last 7 years, at least 1-2 times per year. She denies consuming any unusual food, recent travel, contact with sick people, recent hospitalization or recent antibiotic usage. Course during the hospital stay- Patient was initially dehydrated, was given fluids NS 100 cc/hour. She was given Zofran and metoclopramide for her nausea and vomiting, due to which her number of episodes of vomiting significantly reduced. Her vitals were stable, procalcitonin and lactic acid were normal. Patient was given Protonix 40 mg daily and GI was consulted. Patient was on NPO, was taken for upper GI endoscopy the next day. Endoscopy was performed on FridayFebruary 2025 which showed LA grade B reflux esophagitis with no bleeding. Congested, erythematous and eroded mucosa in the antrum, which was biopsied. Normal duodenal bulb and 2nd portion of the duodenum. She was asked to resume on regular diet immediately after the procedure. Patient was not experiencing any pain, nausea, vomiting after the procedure was done. She was advised to follow up with GI in 1 week for her biopsy results. Patient's condition was stable during the time of discharge. Vital Signs Date Time Temp Pulse Resp B/P (MAP) Pulse Ox O2 Delivery O2 Flow Rate FiO2 02/20/25 11:50 65 15 108/71 96 Room Air 02/20/25 06:53 98.0 02/19/25 20:00 0.0 Laboratory Tests Test 02/18/25 19:10 02/19/25 05:28 02/19/25 20:37 02/20/25 05:48 Urine Specimen Description Non-specified Urine Color Yellow Urine Clarity Clear Urine pH 7.0 Urine Specific [place] <=1.005 Urine Protein Negative mg/dl Urine Glucose (UA) Negative mg/dl Urine Ketones >=80 mg/dl Urine Occult Blood Small Urine Nitrite Negative Urine Bilirubin Negative Urine Urobilinogen 0.2 E.U/dL Urine Leukocyte Esterase Negative Urine RBC None seen /HPF Urine WBC None seen /HPF Urine Squamous Epithelial Cells Few /LPF Urine Bacteria None seen /HPF Urine Culture Indicated Not ind Volume Urine Centrifuged 10 ml Urine HCG, Qualitative Negative Urine Comment Urine Opiates Screen Positive Urine Methadone Screen Negative Urine Fentanyl Screen Negative Urine Barbiturates Screen Negative Urine Phencyclidine Screen Negative Urine Amphetamines Screen Negative Urine Benzodiazepines Screen Negative Urine Cocaine Screen Negative Urine Cannabinoids Screen Positive Drug Screen Comment White Blood Count 4.1 X10'3 3.4 X10'3 Red Blood Count 4.39 X10'6 4.72 X10'6 Hemoglobin 9.9 g/dl 10.5 g/dl Hematocrit 29.9 % 32.6 % Mean Corpuscular Volume 68.1 FL 69.1 FL Mean Corpuscular Hemoglobin 22.4 PG 22.3 PG Mean Corpuscular Hemoglobin Concent 33.0 g/dL 32.3 g/dL Red Cell Distribution Width 16.8 % 16.5 % Platelet Count 258 X10'3 238 X10'3 Mean Platelet Volume 8.3 FL 8.1 FL Neutrophils (%) (Auto) 55.3 % 39.7 % Lymphocytes (%) (Auto) 31.6 % 46.0 % Monocytes (%) (Auto) 12.7 % 10.6 % Eosinophils (%) (Auto) 0.2 % 3.3 % Basophils (%) (Auto) 0.2 % 0.4 % Neutrophils # (Auto) 2.3 X10'3 1.4 X10'3 Lymphocytes # (Auto) 1.3 X10'3 1.6 X10'3 Monocytes # (Auto) 0.5 X10'3 0.4 X10'3 Eosinophils # (Auto) 0.0 X10'3 0.1 X10'3 Basophils # (Auto) 0.0 X10'3 0.0 X10'3 CBC Comment Platelet Estimate Normal Red Blood Cell Morphology Perf Polychromasia Few Basophilic Stippling Few Anisocytosis 1+ Microcytosis 2+ Elliptocytes Few Hematology Pathologist Comment See note Sodium Level 141 MMOL/L 144 MMOL/L Potassium Level 2.8 MMOL/L 3.1 MMOL/L 3.4 MMOL/L Chloride Level 103 MMOL/L 105 MMOL/L Carbon Dioxide Level 28.6 MMOL/L 29.0 MMOL/L Anion Gap 9 10 Blood Urea Nitrogen 4 MG/DL 5 MG/DL Creatinine 0.41 MG/DL 0.43 MG/DL Estimated GFR/1.73 m2 > 90 ML/MIN > 90 ML/MIN BUN/Creatinine Ratio 9.8 11.6 Glucose Level 141 MG/DL 89 MG/DL Calcium Level 7.8 MG/DL 8.2 MG/DL Magnesium Level 1.9 MG/DL 1.8 MG/DL Total Bilirubin 0.6 MG/DL 0.7 MG/DL Aspartate Amino Transf (AST/SGOT) 18 U/L 18 U/L Alanine Aminotransferase (ALT/SGPT) 29 U/L 27 U/L Alkaline Phosphatase 49 IU/L 49 IU/L Total Protein 6.2 G/DL 6.3 G/DL Albumin 3.2 G/DL 3.4 G/DL Globulin 3.0 G/DL 2.9 G/DL Albumin/Globulin Ratio 1.1 1.2 Triglycerides Level 28 MG/DL Cholesterol Level 126 MG/DL LDL Cholesterol 78 MG/DL HDL Cholesterol 33 MG/DL Cholesterol/HDL Ratio 3.8 Thyroid Stimulating Hormone (TSH) 0.12 ulU/ml Chemistry Comments Erythrocyte Sedimentation Rate 5 MM/HR C-Reactive Protein < 0.05 MG/DL Free Thyroxine 1.58 NG/DL Physical exam during the time of discharge- Awake , and oriented x4, resting in the bed, was not in acute distress HEENT: Atraumatic, normocephalic, EOMI, anicteric sclera ; pink conjunctiva Neck: Trachea midline. Supple, full range of motion, no JVD Cardiac: Regular rhythm, regular rate with no murmurs all over the precordium. Respiratory: Equal breath sounds bilaterally, no tachypnea, no wheezing ,rub or rales, Chest wall is symmetric and without deformity. Gastrointestinal: Abdomen symmetric, non-distended, soft, no tenderness present, normal bowel sounds x4 quadrant, normoactive, no hepatosplenomegaly Musculoskeletal: No pedal edema, no cyanosis Neurological: Speech is clear, alert, and oriented x 4. No motor or sensory deficit, deep tendon reflexes normal, cerebellar intact. Cranial nerves II-XII intact. Skin: Warm and dry Additional instructions by the doctor during the time of discharge- Follow-up with GI doctor in 1-2 weeks for biopsy results. Follow up with PCP in 1-2 weeks. We have given you medications for nausea and pain. Please use them when you need it. In case you experience any severe abdominal pain, vomiting of blood, blood in stool, please call 911 or go to the hospital immediately. *Problems/Diagnosis: (1) DEHYDRATION (2) NAUSEA WITH VOMITING (3) Microcytic anemia (4) Hypokalemia (5) Diarrhea (6) Abdominal pain Total Time Spent on D/C: > 30 Minutes Date of Service: Feb 20, 2025 Billing Provider: PATRICIA FOUNTAIN MD Common Visit Codes: 51754-YVS/OBS DISCH DAY >30min IVORY DONATO, RES Feb 20, 2025 15:49 PATRICIA FOUNTAIN MD Feb 20, 2025 21:37
[2025-02-20] MEDS: potassium Cl 20 mEq SR tablet PO PRN (16:52)
[2025-02-20] MEDS: HYDROcodone/acetaminophen 5mg/325mg tablet PO PRN (18:35)
--- NOTE | 2025-02-21 00:24 | CONSULTATION ---
DATE OF CONSULTATION: 02/20/2025 DICTATING PHYSICIAN: Demond Hull MD REASON FOR CONSULTATION: Abdominal pain, nausea, and vomiting. HISTORY OF PRESENT ILLNESS: The patient is 34 years old, came to the Emergency Department with a chief complaint of nausea, vomiting, and abdominal pain. This started 7 days ago. The patient has been having abdominal pain, which is cramping, generalized, but predominantly in the epigastric area without any aggravating or relieving factors or radiation. She also has been having nausea and vomiting associated with that. The vomiting is essentially bilious. There has not been any hematemesis. She also has had some diarrhea, although not bloody. Denies recent travel, any changes in medications or diet. Other family members not affected with similar illness. No fever. PAST MEDICAL HISTORY: Negative. FAMILY HISTORY: Noncontributory. PERSONAL HISTORY: Noncontributory. REVIEW OF SYSTEMS: The 12-point review of systems, same as history of present illness. PHYSICAL EXAMINATION: GENERAL: On physical exam, she is awake, alert, and appears to be in no apparent distress. VITAL SIGNS: Normal. HEART: Normal. LUNGS: Normal. ABDOMEN: Soft, nontender. No masses. No organomegaly. Bowel sounds are present. LABORATORY AND DIAGNOSTIC DATA: CT scan was done, which was essentially normal. Laboratory values were essentially unremarkable. She was slightly hypokalemic when she came in and it has been corrected. IMPRESSION: A 34-year-old lady admitted to abdominal pain, nausea, and vomiting. Could be a viral syndrome; however, other etiologies including esophagitis, peptic ulcer disease, have to be ruled out. RECOMMENDATIONS: Endoscopy to further evaluate. The risks and benefits were explained, understands and wishes to proceed. Further recommendations to be made after the endoscopy. Demond Hull MD TID: [id number] RECEIPT: [id number] /[facility]
[2025-02-21 06:21] LABS: CREATININE 0.69 MG/DL (0.40-0.90); TOTAL CARBON DIOXIDE 31.6 MMOL/L (24-32); eCRCL 87 ML/MIN; eGFR > 90 ML/MIN
[2025-02-21 06:25] LABS: MEAN PLATELET VOLUME 8.3 FL (7.4-10.4); RED CELL DISTRIBUTION WIDTH 17.0 % (11.5-14.5)
[2025-02-21 06:59] VITALS: BP 130/95; PULSE 102; RESP 15; TEMP 99.2; O2SAT 95
[2025-02-21 08:00] VITALS: RESP 16
[2025-02-21] MEDS: pantoprazole 40mg Tablet.DR PO SCH (08:56)
[2025-02-21 10:49] VITALS: BP 125/86; PULSE 82; RESP 16; TEMP 99; O2SAT 98
--- NOTE | 2025-02-21 18:55 | PROGRESS NOTE- Residence ---
Progress Note - Resident Providers to CC Resident Creating Document: VAISHNAVI PHIPPS RES ~ Antibiotic Timeout Antibiotic Ordered?: No Subjective Patient was seen and examined at the bedside today. No acute overnight event recorded, patient clinical condition remained stable. Patient was supposed to be discharged yesterday. Condition has been stable. Objective Vital Signs Date Time Temp Pulse Resp B/P (MAP) Pulse Ox O2 Delivery O2 Flow Rate FiO2 02/21/25 10:49 99.0 82 16 125/86 (99) 98 Room Air 02/19/25 20:00 0.0 Result Diagram: 02/21/2545802/21/25458 General: awake, alert oriented to place, time, and person HEENT: No pallor present, no icterus, moist mucous membranes Neck: No masses and tenderness Resp: Unlabored. Lungs clear to auscultation bilaterally. Chest: Normal expansion. Cardiovascular: Regular Rate and rhythm, normal S1 and S2 without murmur, rub or gallop Abdomen: Soft and mild tenderness in abdomen, no organomegaly, no guarding and rigidity, bowel sounds present Neuro: No focal weakness in the upper and lower limb muscles, power of the muscles 5/5 bilateral upper and lower extremities, normal reflexes bilaterally. Cranial nerves intact Extremities: No cyanosis,clubbing or edema Skin: Warm and Dry. No lesions Psych: Normal affect Advance Care Planning Advanced Care plannin - 30 Minutes Plan Plan Abdominal pain Nausea/vomiting, diarrhea Viral vs bacterial Vitals stable WBC-4.1 CT abdomen- no abnormality seen. Procalcitonin normal, lactic acid normal Patient on Zofran and metoclopramide for nausea and vomiting. Patient underwent endoscopy Patient on Protonix 40 mg daily. Patient was still complaining of mild abdominal pain, possibly due to esophagitis patient has been prescribed Protonix 40 mg at discharge Endoscopy showed: Endoscopy was performed which showed LA grade B reflux esophagitis with no bleeding. Congested, erythematous and eroded mucosa in the antrum, which was biopsied. Normal duodenal bulb and 2nd portion of the duodenum. Hypokalemia Resolved Microcytic anemia- Hb- 11.5, MCV-68.4 Serum iron low, serum ferritin normal, TIBC high Most likely due to iron-deficiency anemia Dehydration-resolved Code status: Full code DVT prophylaxis: SubQ heparin Disposition: Patient was complaining of mild abdominal pain she was supposed to be discharged yesterday. Condition remained stable. Patient has been discharged Vaishnavi Phpips PGY1 Internal Medicine Date of Service: Feb 21, 2025 Billing Provider: PATRICIA FOUNTAIN MD Common Visit Codes: [id number] INP/OBS CARE(HIGH) VAISHNAVI PHIPPS, RES Feb 21, 2025 18:55 PATRICIA FOUNTAIN MD Feb 21, 2025 21:51
== END 2025-02-21 14:35 | disposition home or self-care (01) | DRG 243 ==
LOC: ER 10:17 → UNDOADMIN 17:44 → ED HOLD 17:44 → EDBEDREQ 19:57 → SUR 3N 20:25 → ED HOLD 20:25
PROVIDERS: ADMIT Internal Medicine; ATTEND Internal Medicine
PROC: BW211ZZ Computerized Tomography (CT Scan) of Abdomen and Pelvis using Low Osmolar Contrast (ICD-10-PCS; 2025-02-18)
PROC: 0DB78ZX Excision of Stomach, Pylorus, Via Natural or Artificial Opening Endoscopic, Diagnostic (ICD-10-PCS; principal; 2025-02-20 22:00)
DX: K21.00 Gastro-esophageal reflux disease with esophagitis, without bleeding (principal); D50.9 Iron deficiency anemia, unspecified; E87.6 Hypokalemia; E86.0 Dehydration; E05.90 Thyrotoxicosis, unspecified without thyrotoxic crisis or storm; F31.9 Bipolar disorder, unspecified; F41.9 Anxiety disorder, unspecified; G89.29 Other chronic pain; Z87.440 Personal history of urinary (tract) infections; Z87.442 Personal history of urinary calculi; Z90.49 Acquired absence of other specified parts of digestive tract; Z88.1 Allergy status to other antibiotic agents
CPT/HCPCS: 36415; 43239; 74177; 80048; 80053; 80061; 80305; 81001; 81025; 82728; 83036; 83540; 83550; 83605; 83690; 83735; 84100; 84132; 84145; 84439; 84443; 84703; 85008; 85025; 85651; 86140; 96365; 96375; 99152; 99285; A4620; G0378; J0780; J1100; J1200; J1644; J2250; J2270; J2405; J2470; J2765; J3010; J3480; J7030; J7070; J7120; Q9967

== ENCOUNTER 2025-05-07 21:40 | Emergency (ER) | payer MEDICAID ==
[~2025-05-07] VITALS: Ht 154.9 cm; Wt 60.3 kg
[~2025-05-07 21:40] MED LIST changes: -COM10T PO; -ESOM20CA PO; -FAMO-128 PO; -IBUP-1986 PO; -IBUP600T52 PO; -ONDA-245 PO; -ONDA4TAB6 PO; -ONDA8TAB9 PO; -ZOF4T PO
[2025-05-07 21:48] VITALS: BP 140/90; PULSE 63; TEMP 98.5; O2SAT 99
--- NOTE | 2025-05-07 22:54 | Physician Documentation ---
HPI ~ General Chief Complaint: Tooth Problem Stated Complaint: TOOTH PAIN Time Seen by MD: 21:52 Primary Medical Doctor: [facility] History of Present Illness HPI Comment This is a 34-year-old female who presents with three days of progressively worsening left lower rear molar pain, patient reports that pain has been intermittent for some time and he is awaiting a root canal. Patient reports no facial swelling or fevers. Medication Reconciliation Allergies: Coded Allergies: levofloxacin (Verified Allergy, Intermediate, HIVES, 05/07/25) Scheduled Fluticasone Propionate (Flonase), 2 SPRAYS BOTHNARES DAILY Hydrocortisone Acetate (Hydrocortisone Acetate), 1 SUPP RC Q12H Nitrofurantoin Monohyd/M-Cryst (Macrobid 100 mg Capsule), 1 CAP PO Q12H Olanzapine (Olanzapine), 1 TAB PO HS Pantoprazole Sodium (PROTONIX tablet), 1 TAB PO DAILY Pseudoephedrine HCl (Sudafed 12 Hour), 1 TAB PO Q12H Sucralfate (Carafate), 10 ML PO Q6H Witch Lucie (Preparation H), 1 EA RC TID Scheduled PRN ONDANSETRON ODT 4mg tablet (Ondansetron Odt), 4 MG PO Q8HPRN PRN for nausea/vomiting Oxycodone Hcl/Acetaminophen 5/325 MG* (Percocet 5/325 MG*), 1-2 TAB PO Q6H PRN for pain, (Reported) Past Medical History Past Medical History: Cholelithiasis, Gastritis, Pancreatitis, Kidney Stones, UTI, Hyperthyroidism, Chronic Back Pain, Anxiety, Bipolar, Depression Past Surgical History: appendectomy, cholecystectomy, other Patient History: Patient reports no known family medical history. Alcohol Use: Occasionally Drug Use: marijuana Lives with: S/O, Family Lives In: Home Occupation: employed Review of Systems ROS As stated above in the HPI, otherwise all systems are reviewed and negative. Physical Exam Vital Signs: Temperature: 98.5, Source: Temporal, Heart Rate: 63, Respiratory Rate: 16, BP: 140/90, Pulse Oximetry: 99, Weight: 60.300 Oxygen Flow Rate: 0 Physical Exam VITALS: Reviewed and as above. GENERAL: Alert, nontoxic appearing, no apparent distress. HEENT: Pharynx nonerythematous, uvula midline, no facial swelling, no elevation of the tongue, no submandibular swelling, no erythema or swelling at base of left rear lower molar, no fluctuance, no obvious damage to tooth. No drooling RESPIRATORY: No increased work of breathing, no respiratory distress, speaking in full clear sentences Progress Results/Orders Results/Orders Completed Orders - BHAVYA SAPP [employer] ADMINISTRATOR Ketorolac Trometh 15mg/Ml Vial (Toradol (05/07/25 22:50) Medications Received in ER Medications (Trade) Dose Ordered Sig/Beth Route PRN Reason Start Time Stop Time Status Last Admin Dose Admin (Toradol injection) 15 mg ONCE ONCE IM 05/07/25 22:50 05/07/25 22:51 DC 05/07/25 23:15 15 MG Vital Signs 05/07/25 05/07/25 21:48 23:15 Temp 98.5 Pulse 63 Resp 16 18 B/P (MAP) 140/90 Pulse Ox 99 O2 Flow Rate 0 Medical Decision Making Additional information obtaine: N/A Findings This well appearing 34-year-old female presented with dental pain to the left lower rear molar. Based on history and physical exam I have low clinical murguia spicion for peritonsillar abscess, uvulitis, deep tissue space infection of the head/neck, or impending airway compromise. There was no submandibular swelling or elevation of the tongue, the uvula was midline, patient is able to swallow fluids and secretion without difficulty, there is no increased work of breathing or noisy breathing. As was no erythema or swelling at the base of the tooth and no obvious damage to the tooth along with history of longstanding intermittent pain to the tooth I have low suspicion that the patient's dental pain is related to infection, cancer, or acute trauma. Patient is otherwise well-appearing and appropriate for outpatient follow up. Patient provided careful return to care precautions, follow up instructions to include follow up with a dentist, and home care instructions. Differential Dx:Considerations: Include: Alveolar fracture, Alveolar osteitis, ANUG, Facial Cellulitis, Periapical abscess, Peridontal abscess, Pulpitis, Tooth avulsion, Tooth Fracture, Trigeminal neuralgia, Tooth subluxation, Other (Scar's angina) Departure Time of Disposition: 22:54 Disposition: 01 HOME / SELF CARE / HOMELESS Impression: Primary Impression: Toothache Condition: Improved Discharge Instructions: Dental Pain Additional Instructions: You may continue to utilize Tylenol as needed for dental pain, follow up as soon as possible with a dentist. Please follow up with your primary care provider in the next few days. Please return to the emergency department for any new or worsening concerning symptoms. Referrals: NO PRIMARY CARE PROVIDER (PCP) Education Educated: Patient Educated regarding: diagnosis, treatment, prognosis, need for follow up Signature Scribe Signature: No scribe Attestation: The note accurately reflects work and decisions made by me.EZEQUIEL Vázquez 05/08/25 01:50 BHAVYA SAPP May 07, 2025 22:54
[2025-05-07 23:15] VITALS: RESP 18
[2025-05-07] MEDS: ketorolac trometh 15mg/ml vial 15 MG/ML ML IM ONE (23:15)
== END 2025-05-07 23:38 | disposition home or self-care (01) ==
LOC: ER 21:40
DX: K08.89 Other specified disorders of teeth and supporting structures (principal); E05.90 Thyrotoxicosis, unspecified without thyrotoxic crisis or storm; G89.29 Other chronic pain; F31.9 Bipolar disorder, unspecified; F41.9 Anxiety disorder, unspecified; F12.90 Cannabis use, unspecified, uncomplicated; Z90.49 Acquired absence of other specified parts of digestive tract; Z88.1 Allergy status to other antibiotic agents; Z87.442 Personal history of urinary calculi; Z87.440 Personal history of urinary (tract) infections; Z87.19 Personal history of other diseases of the digestive system; Z79.899 Other long term (current) drug therapy; Z72.89 Other problems related to lifestyle
CPT/HCPCS: 96372; 99283; J1885